=== PATIENT | female | born 2000 | race Caucasian/White ===

== ENCOUNTER 2020-11-08 12:41 | Emergency (ER) | payer OTHER, MEDICAID, SELFPAY ==
[2020-11-08 12:45] VITALS: BP 148/100; PULSE 100; RESP 14; TEMP 37; O2SAT 100; BMI 54.9
--- NOTE | 2020-11-08 12:53 | XR_ITS ---
PROCEDURE: XR KNEE LT 3V CLINICAL INDICATION: fall Pain following injury COMPARISON: No exams were available for comparison FINDINGS: No fracture or dislocation. No lytic or blastic change. There is normal mineralization. The joint spaces are well-preserved. No significant degenerative/arthritic changes. No erosive changes evident. Other findings:None. IMPRESSION: No acute findings. Dictated by: Gaston Rios MD 11/08/2020 15:57 Gaston Rios MD in [place] 11/08/2020 15:57
--- NOTE | 2020-11-08 12:53 | XR_ITS ---
PROCEDURE: XR TIBIA FIBULA LT 2V CLINICAL INDICATION: FALL Posttraumatic pain COMPARISON: No exams were available for comparison FINDINGS: No fracture or dislocation. No lytic or blastic change. There is normal mineralization. The joint spaces are well-preserved. No significant degenerative/arthritic changes. No erosive changes evident. Other findings:None. IMPRESSION: No acute findings. Dictated by: Gaston Rios MD 11/08/2020 15:56 Gaston Rios MD in [place] 11/08/2020 15:56
--- NOTE | 2020-11-08 12:53 | XR_ITS ---
PROCEDURE: XR ANKLE LT MIN 3V CLINICAL INDICATION: fall Posttraumatic pain COMPARISON: No exams were available for comparison FINDINGS: No fracture or dislocation. No lytic or blastic change. There is normal mineralization. The joint spaces are well-preserved. No significant degenerative/arthritic changes. No erosive changes evident. Other findings:None. IMPRESSION: No acute findings. Dictated by: Gaston Rios MD 11/08/2020 15:55 Gaston Rios MD in [place] 11/08/2020 15:55
[2020-11-08 13:01] LABS: UTC Pregnancy Test, Urine Negative (Negative)
--- NOTE | 2020-11-08 13:22 | HMH.EDUTC ---
[facility] [place] Disposition Clinical Impression: Left leg pain Left knee sprain Qualifiers: Encounter type: initial encounter Involved ligament of knee: unspecified ligament Qualified Code(s): S83.92XA - Sprain of unspecified site of left knee, initial encounter Left knee pain Qualifiers: Chronicity: acute Qualified Code(s): M25.562 - Pain in left knee Disposition: Home, Self-Care Condition on Discharge: Good Instructions: DI for Knee Sprain Additional Instructions: Rest the extremity, apply ice for 15 minutes as tolerated three or four times per day, Wear the brittny wrap for compression, Elevate the extremity as tolerated while you are resting. Take ibuprofen for pain. I sent in a prescription to your pharmacy. Follow up with Dr. Bravo (orthopedics). Sometimes there can be fractures that don't show up well on the first set of x-rays. So, you should follow up if you continue to have symptoms. I put in a referral but you need to call his office and schedule an appointment. Follow up with your regular doctor. GO TO THE ER FOR ANY WORSENING SYMPTOMS Prescriptions: Ibuprofen [Ibuprofen 600mg Tablet] 600 mg PO Q6HP PRN #30 tab PRN Reason: Mild Pain Transmission Status: Received by [id number] Referrals: PCP,No [Primary Care Provider] - Jovani Bravo MD [Staff Physician] - Time of Disposition: 13:43 Medical Decision Making - Medical Records Medical records reviewed: No: I reviewed the patient's medical records. - Byron Inquiry Pt receiving controlled substance: No Vital Signs: 11/08/20 12:45 11/08/20 13:44 Temperature 98.6 F 98.6 F Temperature Source Oral Pulse Rate 100 H Pulse Rate [Right Brachial] 100 H Respiratory Rate 14 14 Blood Pressure 148/100 H Blood Pressure [Right Arm] 148/100 H Blood Pressure Mean [Right Arm] 116 Blood Pressure Source [Right Arm] Automatic Cuff Blood Pressure Position [Right Arm] Sitting 02 Sat by Pulse Oximetry 100 Oxygen Delivery Method Room Air - Lab Data Lab Results 11/08/20 12:55: [facility] Negative - Radiology Data #1 Image(s): Knee Image Reviewed: Yes I reviewed the patient's radiology image, Yes I have reviewed radiologist's interpretation Preliminary Findings: Normal/NAD PROCEDURE: XR KNEE LT 3V CLINICAL INDICATION: fall Pain following injury COMPARISON: No exams were available for comparison FINDINGS: No fracture or dislocation. No lytic or blastic change. There is normal mineralization. The joint spaces are well-preserved. No significant degenerative/arthritic changes. No erosive changes evident. Other findings:None. IMPRESSION: No acute findings. Dictated by: Gaston Rios MD 11/08/2020 15:57 Gaston Rios MD in [place] 11/08/2020 15:57 #2 Image(s): Tib/Fib Image Reviewed: Yes I reviewed the patient's radiology image, Yes I have reviewed radiologist's interpretation Preliminary Findings: Normal/NAD PROCEDURE: XR TIBIA FIBULA LT 2V CLINICAL INDICATION: FALL Posttraumatic pain COMPARISON: No exams were available for comparison FINDINGS: No fracture or dislocation. No lytic or blastic change. There is normal mineralization. The joint spaces are well-preserved. No significant degenerative/arthritic changes. No erosive changes evident. Other findings:None. IMPRESSION: No acute findings. Dictated by: Gaston Rios MD 11/08/2020 15:56 Gaston Rios MD in [place] 11/08/2020 15:56 #3 Image(s): Ankle Image Reviewed: Yes I reviewed the patient's radiology image, Yes I have reviewed radiologist's interpretation Preliminary Findings: Normal/NAD PROCEDURE: XR ANKLE LT MIN 3V CLINICAL INDICATION: fall Posttraumatic pain COMPARISON: No exams were available for comparison FINDINGS: No fracture or dislocation. No lytic or blastic change. There is normal mineralization. The joint spaces are well-preserved. No significant degenerative/arthritic changes. N
[2020-11-08 13:44] VITALS: BP 148/100; PULSE 100; RESP 14; TEMP 37; O2SAT 100
== END 2020-11-08 13:50 | disposition home or self-care (01) ==
PROVIDERS: Emergency Provider Nurse Practitioner Family
DX: S83.92XA Sprain of unspecified site of left knee, initial encounter (principal); W10.9XXA Fall (on) (from) unspecified stairs and steps, initial encounter; Y92.019 Unspecified place in single-family (private) house as the place of occurrence of the external cause; F17.210 Nicotine dependence, cigarettes, uncomplicated
CPT/HCPCS: 73562; 73590; 73610; 81025; 99201

== ENCOUNTER → 2020-12-16 12:14 | Outpatient (CLI) | payer OTHER, SELFPAY ==
[2020-12-16 12:59] LABS: Basophils # 0.1 K/mm3 (0-0.2); Basophils % 0.6 % (0.1-2.0); Eosinophils # 0.1 K/mm3 (0.0-0.4); Eosinophils % 0.7 % (0.1-12.0); Hematocrit 42.4 % (37.0-47.0); Hemoglobin 13.6 g/dL (12.2-16.2); Lymphocytes # 3.4 K/mm3 (0.7-4.5); Lymphocytes % 25.5 % (10-50); Mean Corpuscular HGB Conc 32.1 g/dL (31.8-35.4); Mean Corpuscular Hemoglobin 27.2 pg (27.0-31.2); Mean Corpuscular Volume 84.5 fl (81-99); Mean Platelet Volume 8.3 fl (7.4-10.4); Monocytes # 0.6 K/mm3 (0.1-1.0); Monocytes % 4.4 % (1.7-9.3); Neutrophils # 9.1 K/mm3 (1.8-7.8); Neutrophils % 68.7 % (37.0-80.0); Platelet Count 348 K/mm3 (142-424); Red Blood Count 5.02 M/mm3 (4.20-5.40); Red Cell Distribution Width 14.9 % (11.5-17.5); White Blood Count 13.3 K/mm3 (4.8-10.8)
[2020-12-18 08:48] LABS: HIV Screen 4th Generation wRfx Non Reactive (Non Reactive)
[2020-12-18 13:46] LABS: Hepatitis B Surface Antigen Negative (Negative); Hepatitis C Antibody <0.1 s/co ratio (0.0-0.9); Rapid Plasma Reagin Ab Titer Non Reactive (NonRea<1:1); Rubella Antibodies, IgG 2.45 index (Immune >0.99)
== END ==
PROVIDERS: Visit Provider Nurse Practitioner Obstetrics & Gynecology
DX: Z34.90 Encounter for supervision of normal pregnancy, unspecified, unspecified trimester (principal); Z3A.08 8 weeks gestation of pregnancy
CPT/HCPCS: 36415; 85025; 86592; 86703; 86762; 86850; 87340; 87380; G0432

== ENCOUNTER → 2020-12-19 13:47 | Outpatient (CLI) | payer OTHER, SELFPAY ==
--- NOTE | 2020-12-19 13:47 | US_ITS ---
PROCEDURE: US OB <= 14 WEEKS FETUS CLINICAL INDICATION: US OB before 14 weeks for DATES Now status 6 COMPARISON: No exams were available for comparison FINDINGS: An intrauterine gestational sac is present with a pole with a crown-rump length of 1.83cm correlating to gestational age of 8weeks 3days. heart tones are present with an FHR of 167bpm. Yolk sac is noted. There is a 2 cm right ovarian cyst. No cul-de-sac fluid. IMPRESSION: Live IUP at 8 weeks 3 days. Estimated due date by Ultrasound is 07/28/2021 Dictated by: Gaston Rios MD 12/19/2020 17:27 Gaston Rios MD in [place] 12/19/2020 17:27
== END ==
PROVIDERS: Visit Provider Nurse Practitioner Obstetrics & Gynecology
DX: O26.841 Uterine size-date discrepancy, first trimester (principal)
CPT/HCPCS: 76801

== ENCOUNTER → 2021-01-13 11:00 | Outpatient (CLI) | payer OTHER, SELFPAY | PROVIDERS: Visit Provider Nurse Practitioner Obstetrics & Gynecology | DX: Z36.0 Encounter for antenatal screening for chromosomal anomalies (principal) | CPT/HCPCS: 36415 ==

== ENCOUNTER 2021-01-23 00:35 | Emergency (ER) | payer OTHER, SELFPAY ==
[2021-01-23 00:36] VITALS: BP 152/83; PULSE 79; RESP 20; TEMP 36.4; O2SAT 96; BMI 56.7
--- NOTE | 2021-01-23 00:38 | PC.NURSE ---
at bedside and completed pelvic u/s himself.
--- NOTE | 2021-01-23 00:52 | HMH.EDGENADL ---
ED Disposition Clinical Impression: Second trimester bleeding Disposition: Home, Self-Care Condition on Discharge: Good Instructions: DI for Vaginal Bleeding Additional Instructions: Return to the emergency department for worsening bleeding abdominal pain dizziness shortness of air or any other concerns within the next 8 hours otherwise follow-up with your primary care physician and safe and vault mechanic within the next few days - Critical Care Critical Care Time: No Attestation: On , the high probability of a clinically significant, sudden or life threatening deterioration of the following system(s) required my full and direct attention, intervention and personal management. The time I documented below is in addition to time spent performing reported procedures but includes the following listed in this critical care notation. Medical Decision Making - Medical Records Medical records reviewed: Yes: I reviewed the patient's medical records. - Byron Inquiry Pt receiving controlled substance: No Medical Decision Narrative: 20-year-old female early second trimester presents with bleeding, she has no active bleeding at this point and had minimal bleeding and spotting initially. No abdominal pain at this point or cramping. She had Rh+ status previously documented and had normal hematocrit at that time. I doubt severe anemia at this time as she has no dizziness or shortness of air or other symptoms. Bedside ultrasound performed and she has IUP identified at [id number] per biparietal diameter with heart rate visualized and active movement of fetus. Discussed need to follow-up with safe and vault mechanic however no indication for labs at this point. I did give miscarriage precautions and recommendation for follow-up General Adult HPI - General Stated complaint: 14 weeks and bleeding Time Seen by Provider: 01/23/21 00:50 - History of Present Illness HPI narrative: 20-year-old female G1, presents with vaginal spotting x1 tonight. She says she is 14 weeks and she is followed by OB here. She has no abdominal pain nausea vomiting discharge dysuria diarrhea. No prior episodes of spotting. She was Rh+ and labs previously otherwise unremarkable. Onset (ago): hour(s) (1) Radiation: non-radiation Severity: mild - Related Data Home Medications Medication Instructions Recorded Confirmed prenat.vits,priscilla,[id number] 1 tab PO DAILY 12/16/20 01/13/21 Allergies Allergy/AdvReac Type Severity Reaction Status Date / Time bee venom protein (honey bee) Allergy Unknown Swelling Verified 01/13/21 10:12 peanut Allergy Unknown Hives Verified 01/13/21 10:12 [facility] History - Hepatitis A Screen Attestation statement:: This patient has been screened for Hepatitis A risk factors. Laterality Cases: Bilateral: Tonsillectomy Amputation: No Fractures: No - Social History Smoking Status: Current every day smoker Tobacco Type: cigarettes # Packs/Day (cigarettes): 1 Alcohol Intake: never Substance Use Type: denies use Occupational Status: other Family Hx:: No significant family history ROS Obtained: Yes All systems reviewed & no additional complaints - Constitutional Constitutional: Denies body ache, Denies chills - Eyes Eyes: Denies blurry vision - Cardiovascular Cardiovascular: Denies chest pain - Respiratory Respiratory: Denies dyspnea - Gastrointestinal Gastrointestingal: Denies: abdominal pain - Genitourinary Female Genitourinary: Denies dysuria, Denies vaginal discharge - Musculoskeletal Musculoskeletal: Denies back pain - Integumentary/Breasts Skin/Breast: Denies breast pain - Neurologic Neurologic: Denies numbness, Denies tingling, Denies weakness - Hematologic/Lymphatic Henatologic/Lymphatic: Denies easy bleeding Physical Exam - General General appearance: alert, in no apparent distress - Head Head exam: atraumatic - Eye Eye exam: Present: PERRL - ENT E
[2021-01-23 01:05] VITALS: BP 118/81; PULSE 80; RESP 18; TEMP 36.6
[2021-01-23 01:06] VITALS: BP 119/83; PULSE 79; TEMP 36.6; O2SAT 97
== END 2021-01-23 01:06 | disposition home or self-care (01) ==
PROVIDERS: Emergency Provider Emergency Medicine
DX: O26.852 Spotting complicating pregnancy, second trimester (principal); Z3A.14 14 weeks gestation of pregnancy; F17.210 Nicotine dependence, cigarettes, uncomplicated
CPT/HCPCS: 99282

== ENCOUNTER → 2021-03-16 12:47 | Outpatient (CLI) | payer OTHER, SELFPAY ==
--- NOTE | 2021-03-16 12:48 | US_ITS ---
PROCEDURE: US OB /MATERNAL DETAIL CLINICAL INDICATION: 20 weeks gestation COMPARISON: US US OB <= 14 WEEKS FETUS from 12/19/2020 FINDINGS: Single live IUP which was in cephalic presentation initially but turn to breech position at the into the exam. Presentation. Cervix is closed measuring 4 cm. Placenta is anterior and grade 1 without previa or abruption. Average appearing amniotic fluid Complete survey performed and was unremarkable on the submitted images as in PACS. No discrete anomalies identified on survey imaging by technologist. Active fetus. Three-vessel cord with satisfactory umbilical cord insertion. 4- chamber heart noted. Survey of brain & ventricles Unremarkable. Face and neck survey unremarkable. Diaphragm and chest views unremarkable. Abdomen: Both kidneys noted and unremarkable. Stomach noted and satisfactory. Spine: Survey of the spine satisfactory with no anomalies identified nor imaged. Both arms and legs noted. Amniotic Fluid: Adequate. Maternal adnexa: No significant findings. Measurements: Average ultrasound age 20weeks 5days. Gestational Age 20weeks 5days Estimated due date by ultrasound age 0907/29/2021. Estimated weight 364g BPD = 20weeks 6days OFD = 20weeks 5days HC = 20weeks AC = 20weeks 4days FL = 21weeks Growth Percentile= 32Percent% Heart Rate = 147bpm Cerebellum = 20weeks 5days Humerus = 21weeks HC/AC is 1.14 CI is 0.79 FL/BPD is 0.71 FL/AC is 0.23 IMPRESSION: Live IUP at 20 weeks 5 days as described above. No obvious anomalies. Please see above for detail Dictated by: Gaston Rios MD 03/17/2021 06:43 Gaston Rios MD in [place] 03/17/2021 06:43
== END ==
PROVIDERS: PCP Nurse Practitioner Family; Visit Provider Nurse Practitioner Obstetrics & Gynecology
DX: Z34.90 Encounter for supervision of normal pregnancy, unspecified, unspecified trimester (principal); Z3A.20 20 weeks gestation of pregnancy
CPT/HCPCS: 76811

== ENCOUNTER → 2021-03-24 09:15 | Outpatient (CLI) | payer OTHER, SELFPAY ==
--- NOTE | 2021-03-24 09:17 | CA_ITS ---
APPROVED REPORT EXAM: Comprehensive 2D, Doppler, and color-flow Echocardiogram Xm1 Tank Driver: Mena Alcaraz, RCS, RVS Ht: 5 ft 9 in Wt: 377lbs BSA: 2.70 HR: 80 bpm BP: 159/96 mmHg Rhythm: NSR Indications: SOA, HTN,smoker, Edema, morbid obesity, 20weeks 2D Dimensions IVSd 0.67 cm LVEF (Visual) 71.00 % PWd 0.88 cm LVDd 5.50 cm LVDs 3.26 cm LVOT 2.05 cm (M/F) 1.5-2.5 M-Mode Dimensions LA Diam 3.76 cm (1.9-4.0) LVDd 5.38 cm (3.5-5.7) Ao Diam 3.05 cm (2.0-3.7) LVDs 3.60 cm (3.5-5.7) EF (Teich) 61.20% EPSs 0.57 cm FS 33.10% EDV (Teich) 140.10 mL TAPSE 3.07 (<1.7) ESV (Teich) 54.40 mL LV Diastology E Decel Time 253.00 (160-240 msec) E/A Ratio 1.20 MED E' 10.00 (< 7 cm/sec) MED A' 13.40 cm/s E'/MED E' Ratio 8.54 (>14) LAT E' 12.50 (<10 cm/sec) LAT A' 7.00 cm/s E/LAT E' Ratio 6.83 (>14) Aortic Valve LVOT Max 106.00 (70-110 cm/s) LVOT VTI 23.78 cm AoV Peak Doron. 146.00 (50-130 cm/s) AI PHT 351.00 ms AO Peak GR. 8.50 mmHg AO Mean GR. 4.60 (<5 mmHg) AO VTI 29.36 (18-25 cm) TESSA (VTI) 2.67 (2.5-4.5 cm2) Mitral Valve MV A Velocity 71.00 (40-130 cm/s) E/A Ratio 1.20 MV Decel. Time 253.00 (160-240 ms) Pulmonary Valve PV Peak Velocity 92.00 (50-150 cm/s) WI End VMAX 122.00 cm/s Tricuspid Valve TR P. Velocity 213.00 cm/s RAP Estimate 10.00 mmHg RVSP 28.10 mmHg Left Ventricle Left atrium normal size, left ventricle is normal size, there is no concentric left ventricular hypertrophy, visually estimated ejection fraction 55% with no regional wall motion abnormality, diastolic parameters are within normal range. Right Ventricle Right atrium and right ventricle are normal size and contractility. Aortic Valve Aortic valve is grossly normal, there is no aortic stenosis or aortic insufficiency. Mitral Valve Mitral valve grossly normal, there is trace mitral regurgitation. Tricuspid Valve Tricuspid grossly normal, there is trace tricuspid regurgitation, tricuspid regurgitation jet velocity is inadequate for calculation of the right ventricular systolic pressure. Pulmonic Valve Pulmonic valve is poorly visualized. Great Vessels Aortic root is normal size. Pericardium No significant pericardial effusion noted. Conclusion 1. Normal left ventricular size, preserved left ventricular systolic function, visually estimated ejection fraction 55% with no regional wall motion abnormality, diastolic parameters are within normal range. 2. Trace mitral and tricuspid regurgitation. 3. No significant pericardial effusion noted. Electronically signed by : Gabo Neely, 03/24/2021 18:55:48
== END ==
PROVIDERS: PCP Nurse Practitioner Family; Visit Provider Internal Medicine Cardiovascular Disease
DX: R07.9 Chest pain, unspecified (principal); R06.00 Dyspnea, unspecified; R00.2 Palpitations; I10 Essential (primary) hypertension; R60.0 Localized edema; Z72.0 Tobacco use; O26.892 Other specified pregnancy related conditions, second trimester
CPT/HCPCS: 93306

== ENCOUNTER 2021-04-25 19:45 | Emergency (ER) | payer OTHER, SELFPAY ==
[2021-04-25 19:46] VITALS: BP 128/90; PULSE 99; RESP 20; TEMP 37.1; O2SAT 100; BMI 40.1
[2021-04-25 20:13] VITALS: BP 128/90; PULSE 99; RESP 20; TEMP 37.1; O2SAT 100
== END 2021-04-25 20:19 | disposition left against medical advice (07) ==
LOC: ER 20:00 → UTC 20:00
PROVIDERS: Emergency Provider Nurse Practitioner Family; PCP Nurse Practitioner Family
DX: Z53.21 Procedure and treatment not carried out due to patient leaving prior to being seen by health care provider (principal); S80.862A Insect bite (nonvenomous), left lower leg, initial encounter; S80.861A Insect bite (nonvenomous), right lower leg, initial encounter
CPT/HCPCS: 99211

== ENCOUNTER → 2021-05-01 09:22 | Outpatient (CLI) | payer OTHER, SELFPAY ==
[2021-05-01 09:55] LABS: Glucose,Fasting 97 mg/dl (74-100)
[2021-05-01 11:23] LABS: Glucose 1 Hour 110 mg/dL (74-100)
== END ==
PROVIDERS: Visit Provider Nurse Practitioner Obstetrics & Gynecology
DX: Z34.90 Encounter for supervision of normal pregnancy, unspecified, unspecified trimester (principal); Z3A.24 24 weeks gestation of pregnancy
CPT/HCPCS: 36415; 82951

== ENCOUNTER → 2021-05-22 10:29 | Outpatient (CLI) | payer OTHER, SELFPAY ==
--- NOTE | 2021-05-22 10:29 | US_ITS ---
PROCEDURE: US OB BIOPHYSICAL PROFILE CLINICAL INDICATION: Decreased Movement TECHNIQUE: FINDINGS: The following parameters are obtained: Average ultrasound age is Average 30weeks 3days Estimated due date by ultrasound is 07/28/2021. Estimated weight is 1,559g. This is 23rd percentile BPD: 30weeks 2days OFD: 30weeks 2days HC: 30 weeks 2 days AC: 30 weeks 4 days FL: 30 weeks 3 days heart rate: 136bpm bpm. HC/AC: 1.05 Cephalic index: 0.77 FL/BPD: 0.76 FL/AC: 0.22 Amniotic fluid index: 9.65cm Qualitative AFV: 2 breathing movements: 2 Gross body movements: 2 Tone: 2 Biophysical profile score: 8 No obvious anomalies evident. Placenta: Anterior and grade 2 Cervix: Closed measuring 3 cm IMPRESSION: Live IUP which is in cephalic presentation with an average ultrasound age of 30 weeks 3 days and an estimated weight 1559 g which is 23rd percentile. All parameters correlate. Normal JUAN MANUEL 10 cm Biophysical profile 8 of 8 Dictated by: Gaston Rios MD 05/22/2021 13:55 Gaston Rios MD in [place] 05/22/2021 13:55
== END ==
PROVIDERS: PCP Nurse Practitioner Family; Visit Provider Nurse Practitioner Obstetrics & Gynecology
DX: O36.8130 Decreased fetal movements, third trimester, not applicable or unspecified (principal)
CPT/HCPCS: 76816; 76819

== ENCOUNTER 2021-06-20 03:34 | Observation (INO) | payer OTHER, SELFPAY ==
[2021-06-20 01:14] VITALS: BMI 55.8
--- NOTE | 2021-06-20 01:16 | ECG_ITS ---
APPROVED REPORT Exam: Resting ECG HR:96 bpm ECG Measurements Heart Rate 96 AXES DE 130 P 45 QRSd 90 QRS 53 QT 358 T 17 QTc 452 Conclusion Normal sinus rhythm Normal ECG Electronically signed by : Celestine Claudio, 06/21/2021 20:58:13
[2021-06-20 01:20] VITALS: BP 142/92; PULSE 112; RESP 22; TEMP 37; O2SAT 98; BMI 55.8
[2021-06-20 01:22] LABS: Microscopic, Urine URINE MICROSCOPIC (MICROSCOPIC)
[2021-06-20 01:23] LABS: Appearance,Urine CLOUDY (Clear); Blood, Urine 3+ (Negative); Color,Urine YELLOW (Yellow); Glucose,Urine (UA) Negative (Negative); Ketones,Urine TRACE (Negative); Leukocyte Esterase,Urine TRACE (Negative); Nitrate,Urine Negative (Negative); Protein,Urine TRACE (Negative); Specific Gravity, Urine >= 1.030 (1.005-1.030)
[2021-06-20 01:26] LABS: Bilirubin,Urine Negative (Negative)
[2021-06-20 01:27] LABS: Amorphous Sediment,Urine 1+ /lpf; Squamous Epithelial Cell,Urine TNTC #/hpf (0-5)
[2021-06-20 01:36] LABS: Barbiturates Screen,Urine Negative ng/ml (<200)
[2021-06-20 01:37] LABS: Benzodiazepines Screen,Urine Negative ng/ml (<200)
[2021-06-20 01:38] LABS: Amphetamine/Metha Screen,Urine Negative ng/ml (<1000); Cannabinoid Screen,Urine Negative ng/ml (<50)
[2021-06-20 01:39] LABS: Cocaine Screen,Urine Negative ng/ml (<300); Methadone Screen,Urine Negative ng/ml (<300)
[2021-06-20 01:40] LABS: Opiate Screen,Urine Negative ng/ml (<300)
[2021-06-20 01:41] LABS: Phencyclidine Screen,Urine Negative ng/ml (<25)
[2021-06-20 02:03] LABS: Basophils # 0.1 K/mm3 (0-0.2); Basophils % 0.3 % (0.1-2.0); Eosinophils # 0.3 K/mm3 (0.0-0.4); Eosinophils % 1.3 % (0.1-12.0); Hematocrit 34.4 % (37.0-47.0); Hemoglobin 11.2 g/dL (12.2-16.2); Lymphocytes # 3.5 K/mm3 (0.7-4.5); Lymphocytes % 16.7 % (10-50); Mean Corpuscular HGB Conc 32.4 g/dL (31.8-35.4); Mean Corpuscular Hemoglobin 26.5 pg (27.0-31.2); Mean Corpuscular Volume 81.7 fl (81-99); Mean Platelet Volume 8.7 fl (7.4-10.4); Monocytes # 1.2 K/mm3 (0.1-1.0); Monocytes % 5.9 % (1.7-9.3); Neutrophils # 15.8 K/mm3 (1.8-7.8); Neutrophils % 75.8 % (37.0-80.0); Platelet Count 340 K/mm3 (142-424); Red Blood Count 4.21 M/mm3 (4.20-5.40); Red Cell Distribution Width 14.2 % (11.5-17.5)
[2021-06-20 02:07] LABS: White Blood Count 20.9 K/mm3 (4.8-10.8)
[2021-06-20 02:08] LABS: MANUAL DIFFERENTIAL MANUAL DIFFERENTIAL (MANUAL DIFF)
[2021-06-20 02:12] LABS: Lymphocytes % 7 % (10-50); Monocytes % 1 % (2-9); Neutrophils % 89 % (42-76); Total Cells Counted 100
[2021-06-20 02:13] LABS: Platelet Estimate Normal; RBC Morphology Normal
[2021-06-20 02:15] LABS: Activated Partial Thrombo Time 23.8 seconds (22.8-30.6); Fibrinogen 615 mg/dL (229.9-363.5); INR 0.85 (0.9-1.1); Prothrombin Time 10.2 seconds (10.1-12.5)
[2021-06-20 02:28] LABS: Sodium 138 mmol/L (136-145); Troponin I < 0.01 ng/ml (0.00-0.034)
[2021-06-20 02:29] LABS: Alanine Aminotransferase 11 U/L (12-78); Anion Gap 10.7 mEq/L (5-15); Aspartate Amino Transferase 16 U/L (14-36); Blood Urea Nitrogen 9 mg/dl (7-17); Calcium 8.8 mg/dl (8.4-10.2); Carbon Dioxide 22 mmol/L (22.0-30.0); Chloride 109 mmol/L (98-107); Creatinine Clearance Estimated 154 mL/min (50-200); Estimated Glomerular Filt Rate 125 ml/min (>60); GFR (African American) 151 ML/MIN (>60); Glucose 108 mg/dl (74-100); Potassium 3.7 mmoL/L (3.5-5.1)
[2021-06-20 02:30] VITALS: BP 126/82
[2021-06-20 02:30] LABS: Uric Acid 4.6 mg/dl (2.5-6.2)
[2021-06-20 03:00] LABS: Coronavirus 19, PCR Not Detected (NotDetected); Influenza A, PCR Not Detected (NotDetected); Influenza B, PCR Not Detected (NotDetected)
[2021-06-20 03:00] LABS: D-Dimer 1.02 ug/mL (0.0-0.5)
[2021-06-20 03:30] VITALS: BP 130/87
[2021-06-20 04:25] VITALS: BP 115/59
[2021-06-20 09:00] VITALS: BP 141/78; PULSE 90; RESP 18; TEMP 36.7; O2SAT 99
--- NOTE | 2021-06-20 09:33 | HMH.HPDC ---
General - General Admission date:: 06/20/21 Discharge date: 06/20/21 *Admission Date: 06/20/21 *Chief complaint: Chest pain, shortness of breath, , morbid obesity *History of present illness: She is a 21-year-old 1 now para 0 at 35 weeks gestational age. She complains of chest pain on the left part of her chest that started last night. She came into labor and delivery as result of this chest pain. [facility] History I have reviewed the patient's past medical history: Yes Medical History: Reports:: Hypertension Denies:: Cancer, Diabetes Mellitus Type 1, Diabetes Mellitus Type 2 *Have you ever received a pneumonia vaccine?: No *Have you received a flu vaccine this season?: Yes Laterality Cases: Bilateral: Tonsillectomy Other Surgeries: Yes: No Previous Surgery. No: Amputation: No Fractures: No - *Social History Smoking Status: Current every day smoker Tobacco Type: cigarettes # Packs/Day (cigarettes): 1 Alcohol Intake: former Alcohol Intake Frequency:: other Substance Use Type: denies use *Occupational Status:: unemployed *Travel in the last 8 weeks: None Family Hx:: Diabetes, Cancer Para: 0 Review of Systems - Review of Systems Review of systems:: pertinent systems reviewed and negative unless documented below Exam Vital signs and Labs for Last 24 Hours: Temp Pulse Resp BP Pulse Ox 98.6 F 112 H 22 115/59 L 98 06/20/21 01:20 06/20/21 01:20 06/20/21 01:20 06/20/21 04:25 06/20/21 01:20 Laboratory Results - last 24 hr 06/20/21 00:16: Urine Color Yellow, Urine Appearance Cloudy, Urine pH 6.0, Ur Specific [place] >= 1.030, Urine Protein Trace, Urine Glucose (UA) Negative, Urine Ketones Trace, Urine Blood 3+, Urine Nitrate Negative, Urine Bilirubin Negative, Urine Urobilinogen 1.0, Ur Leukocyte Esterase Trace, Urine RBC 10-20, Urine WBC 3-5, Ur Squamous Epith Cells Tntc, Amorphous Sediment 1+ 06/20/21 00:16: Urine Opiates Screen Negative, Urine Methadone Screen Negative, Ur Barbituates Screen Negative, Ur Phencyclidine Scrn Negative, Ur Amphetamines Screen Negative, U Benzodiazepines Scrn Negative, Urine Cocaine Screen Negative, U Marijuana (THC) Screen Negative 06/20/21 01:50: WBC 20.9 H*, RBC 4.21, Hgb 11.2 L, Hct 34.4 L, MCV 81.7, MCH 26.5 L, MCHC 32.4, RDW 14.2, Plt Count 340, MPV 8.7, Neut % (Auto) 75.8, Lymph % (Auto) 16.7, Schleicher % (Auto) 5.9, Eos % (Auto) 1.3, Baso % (Auto) 0.3, Neut # (Auto) 15.8 H, Lymph # (Auto) 3.5, Schleicher # (Auto) 1.2 H, Eos # (Auto) 0.3, Baso # (Auto) 0.1, Total Counted 100, Neutrophils % (Manual) 89 H, Band Neutrophils % 3.0, Lymphocytes % (Manual) 7 L, Monocytes % (Manual) 1 L, Platelet Estimate Normal, RBC Morphology Normal 06/20/21 01:50: PT 10.2, INR 0.85 L, APTT 23.8, Fibrinogen 615 H 06/20/21 01:50: D-Dimer 1.02 H, Sodium 138, Potassium 3.7, Chloride 109 H, Carbon Dioxide 22, Anion Gap 10.7, BUN 9, Creatinine 0.60, Estimated Creat Clear 154, Estimated GFR 125, Est GFR ( Amer) 151, Glucose 108 H, Uric Acid 4.6, Calcium 8.8, AST 16, ALT 11 L, Troponin I < 0.01 06/20/21 02:55: SARS-CoV-2 (PCR) Not detected, Influenza A Untype (PCR) Not detected, Influenza Type B (PCR) Not detected 06/20/21 07:25: NT-Pro-B Natriuret Pep 19.0 I & O for Last 24 hours: Intake & Output 06/17/21 06/18/21 06/19/21 06/20/21 11:59 11:59 11:59 11:59 Weight 378 lb 6.4 oz - Constitutional no acute distress - *Routine HEENT Exam Head: Present: normocephalic Eye: Present: EOMI, PERRL ENT: Present: mucous membranes moist - *Routine Neck Exam Present: supple, full ROM - *Routine Respiratory Exam Absent: accessory muscle use (good air entry bilaterally), wheezes, crackles - *Routine Cardiovascular Exam Present: RRR. Absent: murmur - *Routine Abdominal Exam Present: soft, normoactive bowel sounds. Absent: tenderness, rebound, guarding, mass - *Routine Rectal Exam Rectal:: deferred - *Routine Genitalia Exam Genitalia:: deferred - *Routine Extremities E
== END 2021-06-20 10:25 | disposition home or self-care (01) ==
LOC: OBOUT 03:36 → OB 03:36
PROVIDERS: Admitting Provider Nurse Practitioner Obstetrics & Gynecology; PCP Nurse Practitioner Family; Visit Provider Nurse Practitioner Obstetrics & Gynecology
DX: O26.893 Other specified pregnancy related conditions, third trimester (principal); Z3A.35 35 weeks gestation of pregnancy; R07.9 Chest pain, unspecified; O16.4 Unspecified maternal hypertension, complicating childbirth; O99.333 Smoking (tobacco) complicating pregnancy, third trimester; Z20.822 Contact with and (suspected) exposure to COVID-19
CPT/HCPCS: 59025; 80048; 80305; 81001; 83880; 84450; 84460; 84484; 84550; 85007; 85025; 85378; 85384; 85610; 85730; 93005; 94761; G0283; G0378; G0463; U0003

== ENCOUNTER → 2021-06-29 17:41 | Outpatient (CLI) | payer OTHER, SELFPAY | PROVIDERS: Visit Provider Nurse Practitioner Obstetrics & Gynecology | DX: Z34.90 Encounter for supervision of normal pregnancy, unspecified, unspecified trimester (principal) | CPT/HCPCS: 86403 ==

== ENCOUNTER → 2021-07-03 10:15 | Outpatient (CLI) | payer OTHER, SELFPAY ==
--- NOTE | 2021-07-03 10:15 | US_ITS ---
PROCEDURE: US OB /MATERNAL DETAIL CLINICAL INDICATION: lga Large for gestational age COMPARISON: US US OB BIOPHYSICAL PROFILE from 05/22/2021 FINDINGS: There is a single live fetus present which is in cephalic presentation. heart body motion noted. Cervix is closed. The placenta is anterior and grade 3. Average ultrasound age is 37 weeks 1 day. All parameters correlate. Estimated weight is 3053 g which is 56 percentile. JUAN MANUEL normal at 15 cm. Biophysical profile 06/28 Measurements: Average ultrasound age 37weeks 1day. Gestational Age 37weeks 1day Estimated due date by ultrasound age 0907/23/2021. Estimated weight 3,053g BPD = 37weeks 1day OFD = 37weeks 1day HC = 36weeks 3days AC = 36weeks 3days FL = 38weeks 1day Growth Percentile= 56% Heart Rate = 155bpm Cerebellum = Humerus = HC/AC is 0.99 CI is 0.81 FL/BPD is 0.82 FL/AC is 0.23 IMPRESSION: There is a single live fetus present which is in cephalic presentation. heart body motion noted. Cervix is closed. The placenta is anterior and grade 3. Average ultrasound age is 37 weeks 1 day. All parameters correlate. Estimated weight is 3053 g which is 56 percentile. JUAN MANUEL normal at 15 cm. Biophysical profile 06/28 Dictated by: Gaston Rios MD 07/03/2021 12:48 Gaston Rios MD in [facility] 07/03/2021 12:48
== END ==
PROVIDERS: PCP Nurse Practitioner Family; Visit Provider Nurse Practitioner Obstetrics & Gynecology
DX: O36.60X0 Maternal care for excessive fetal growth, unspecified trimester, not applicable or unspecified (principal)
CPT/HCPCS: 76811; 76819

== ENCOUNTER 2021-07-20 16:01 | Inpatient (IN) | payer OTHER, SELFPAY ==
[2021-07-20 16:16] VITALS: BMI 57.6
--- NOTE | 2021-07-20 16:45 | HMH.OBAPHP ---
OB - H&P: HPI Antepartum - History of Present Illness Chief complaint: Increased blood pressure Comments: She was seen in the office today and her blood pressure is increased. We will go ahead and admit her and plan for delivery. - History of Present Criteria for establishing EDC:: LMP confirmed by 1st trimester US care: good care Ultrasounds: normal 1st trimester US, normal mid trimester US Obstetrical complications: preeclampsia Medical complications: none - Labs Blood type: O (+) positive Rubella: immune RPR/VDRL: nonreactive GBS status: negative HBsAG: negative [facility] History I have reviewed the patient's past medical history: Yes Medical History: Reports:: Hypertension Denies:: Cancer, Diabetes Mellitus Type 1, Diabetes Mellitus Type 2 *Have you ever received a pneumonia vaccine?: No *Have you received a flu vaccine this season?: No Laterality Cases: Bilateral: Tonsillectomy Other Surgeries: Yes: No Previous Surgery. No: Amputation: No Fractures: No - *Social History Smoking Status: Current every day smoker Tobacco Type: cigarettes # Packs/Day (cigarettes): 1 Alcohol Intake: former Alcohol Intake Frequency:: other Substance Use Type: denies use *Occupational Status:: unemployed *Travel in the last 8 weeks: None Family Hx:: Diabetes, Cancer Review of Systems - Review of Systems Review of systems:: pertinent systems reviewed and negative unless documented below Meds Home Medications Medication Instructions Recorded Confirmed Type prenat.vits,priscilla,[id number] 1 tab PO DAILY 12/16/20 07/20/21 History Aspirin [Adult Low Dose Aspirin EC] 81 mg PO DAILY 06/20/21 07/20/21 History Ferrous Sulfate 325 mg PO DAILY 06/20/21 07/20/21 History Allergies Allergy/AdvReac Type Severity Reaction Status Date / Time bee venom protein (honey bee) Allergy Unknown Swelling Verified 07/20/21 14:55 peanut Allergy Unknown Hives Verified 07/20/21 14:55 OB - H&P: Exam - Constitutional no acute distress, morbidly obese - Routine HEENT Exam Head: Present: normocephalic Eye: Present: EOMI, PERRL ENT: Present: mucous membranes moist - Routine Neck Exam Present: supple, full ROM - Routine Respiratory Exam Absent: accessory muscle use (good air entry bilaterally), respiratory distress, wheezes, crackles - Routine Cardiovascular Exam Present: RRR. Absent: murmur - Routine Abdominal Exam Present: soft, normoactive bowel sounds. Absent: tenderness, distended, guarding - Routine Rectal Exam Patient deferred: visual exam, digital exam - Routine Exam Patient deferred: external exam, groin exam, perineal exam - Routine Extremities Exam Present: full ROM. Absent: cyanosis, edema - Routine Skin Exam Present: intact. Absent: cyanosis - Routine Neurological Exam Present: alert, oriented X3 - Routine Psychiatric Exam Present: normal affect OB - A/P Antepartum (1) induced hypertension, antepartum Status: Acute (2) Morbid obesity with BMI of 50.0-59.9, adult Status: Acute - Additional Plan Planning to breastfeed?: No Plan: induction Additional Information:: She has increased blood pressure and we will go ahead and admit her. We will put Cervidil in tonight. She is 2 cm 50% and station -2.
[2021-07-20 16:56] LABS: Coronavirus 19, PCR Not Detected (NotDetected); Influenza A, PCR Not Detected (NotDetected); Influenza B, PCR Not Detected (NotDetected)
[2021-07-20 18:06] LABS: Basophils % 0.2 % (0.1-2.0); Eosinophils # 0.1 K/mm3 (0.0-0.4); Eosinophils % 0.6 % (0.1-12.0); Hematocrit 38.1 % (37.0-47.0); Hemoglobin 12.1 g/dL (12.2-16.2); Lymphocytes # 2.6 K/mm3 (0.7-4.5); Lymphocytes % 15.8 % (10-50); Mean Corpuscular HGB Conc 31.9 g/dL (31.8-35.4); Mean Corpuscular Hemoglobin 27.4 pg (27.0-31.2); Mean Corpuscular Volume 85.9 fl (81-99); Mean Platelet Volume 9.5 fl (7.4-10.4); Monocytes # 0.9 K/mm3 (0.1-1.0); Monocytes % 5.4 % (1.7-9.3); Neutrophils # 12.8 K/mm3 (1.8-7.8); Platelet Count 359 K/mm3 (142-424); Red Blood Count 4.43 M/mm3 (4.20-5.40); Red Cell Distribution Width 14.7 % (11.5-17.5); White Blood Count 16.4 K/mm3 (4.8-10.8)
[2021-07-20 18:15] LABS: MANUAL DIFFERENTIAL MANUAL DIFFERENTIAL (MANUAL DIFF)
[2021-07-20 19:20] VITALS: BP 135/84; PULSE 100; RESP 18; TEMP 37.1; O2SAT 100; BMI 57.6
[2021-07-20 19:24] LABS: Lymphocytes % 19 % (10-50); Monocytes % 6 % (2-9); Neutrophils % 75 % (42-76); Platelet Estimate Normal; RBC Morphology Normal; Total Cells Counted 100
[2021-07-20 19:56] VITALS: BP 122/86; PULSE 100; RESP 18; TEMP 36.9; O2SAT 99
[2021-07-20 21:18] LABS: Microscopic, Urine URINE MICROSCOPIC (MICROSCOPIC)
[2021-07-20 21:19] LABS: Appearance,Urine SL CLOUDY (Clear); Bilirubin,Urine Negative (Negative); Blood, Urine TRACE-I (Negative); Color,Urine DK YELLOW (Yellow); Glucose,Urine (UA) Negative (Negative); Ketones,Urine TRACE (Negative); Leukocyte Esterase,Urine Negative (Negative); Nitrate,Urine Negative (Negative); Protein,Urine Negative (Negative); Specific Gravity, Urine >= 1.030 (1.005-1.030); Urobilinogen,Urine 0.2 EU/dl (0.2)
[2021-07-20 21:39] LABS: WBC,Urine Occasional #/hpf (0-3)
[2021-07-20 21:40] LABS: Bacteria,Urine Trace /lpf
[2021-07-20 22:00] LABS: Amphetamine/Metha Screen,Urine Negative ng/ml (<1000); Barbiturates Screen,Urine Negative ng/ml (<200)
[2021-07-20 22:01] LABS: Benzodiazepines Screen,Urine Negative ng/ml (<200); Cannabinoid Screen,Urine Negative ng/ml (<50)
[2021-07-20 22:02] LABS: Cocaine Screen,Urine Negative ng/ml (<300)
[2021-07-20 22:03] LABS: Methadone Screen,Urine Negative ng/ml (<300)
[2021-07-20 22:04] LABS: Phencyclidine Screen,Urine Negative ng/ml (<25)
[2021-07-20 22:07] LABS: Opiate Screen,Urine Negative ng/ml (<300)
[2021-07-20 23:56] VITALS: BP 110/64; PULSE 80; RESP 17; TEMP 36.8; O2SAT 99
--- NOTE | 2021-07-21 07:26 | HMH.ANESCL ---
[facility] Anesthesia Checklist - Patient Identification Patient Identification: Arm Band - Structural Data Admitted From: Home Planned Operative Procedure/s: labor epidural Consent for Planned Operative Procedure(s) Verified: Yes Verified Documents: Surgical Consent, History and Physical - NPO Status Verified Time NPO: 00:00 - Additional verifications Anesthesia Reactions: No - Airway Assessment C-Spine Mobility Assessed: Yes TMJ Mobility Assessed: Yes Dentition: Good Dentition - Neurological Assessment Level of Consciousness: Awake, Alert - Anesthesia Plan Anesthesia Risk discussed: Yes Anesthesia Plan: Verified ASA Class: III Anesthesia Type: Epidural [facility] History I have reviewed the patient's past medical history: Yes Medical History: Reports:: Hypertension Denies:: Cancer, Diabetes Mellitus Type 1, Diabetes Mellitus Type 2 *Have you ever received a pneumonia vaccine?: No *Have you received a flu vaccine this season?: No Anesthesia experience/problems:: nac Laterality Cases: Bilateral: Tonsillectomy Other Surgeries: Yes: No Previous Surgery. No: Amputation: No Fractures: No - *Social History Smoking Status: Current every day smoker Tobacco Type: cigarettes # Packs/Day (cigarettes): 1 Alcohol Intake: former Alcohol Intake Frequency:: other Substance Use Type: denies use *Occupational Status:: employed *Travel in the last 8 weeks: None Family Hx:: Diabetes, Cancer Para: 0
--- NOTE | 2021-07-21 08:17 | HMH.LABNOT ---
Labor Note - Subjective: Date: 07/21/21 Time: 08:17 regular contraction - Objective: NST:: Reactive Cervical Dilation:: 4 Effacement:: 90% Station: -1 Membranes: artificially ruptured - Fetus: Monitoring?: Yes monitoring type:: Internal Comment:: I inserted a clip and an IUPC. - Assessment: Patient Problems: All Active Problems Second trimester bleeding (Acute) Bug bite (Acute) Chest pain (Acute) Shortness of breath (Acute) Morbid obesity with BMI of 50.0-59.9, adult (Acute) related conditions, unspecified, third trimester (Acute) induced hypertension, antepartum (Acute) Sinus tachycardia (Acute) (Acute) - Plan: Anesthesia for epidural?: Yes Continue to labor down?: Yes Plan for ?: No Continue to monitor?: Yes Start pushing?: No Comment:: She had Cervidil overnight and now has been started on oxytocin. She has progressed to 4 cm. The pelvis seems adequate.
--- NOTE | 2021-07-21 10:46 | HMH.LABNOT ---
Labor Note - Subjective: Date: 07/21/21 Time: 10:46 regular contraction - Objective: NST:: Reactive Contractions:: every 2-3 minutes Cervical Dilation:: 5 Effacement:: 100% Station: -1 Membranes: artificially ruptured - Fetus: Monitoring?: Yes monitoring type:: Internal - Assessment: Labor progressing?: Yes Cephalopelvic disproportion?: No Patient Problems: All Active Problems Second trimester bleeding (Acute) Bug bite (Acute) Chest pain (Acute) Shortness of breath (Acute) Morbid obesity with BMI of 50.0-59.9, adult (Acute) related conditions, unspecified, third trimester (Acute) induced hypertension, antepartum (Acute) Sinus tachycardia (Acute) (Acute) - Plan: Anesthesia for epidural?: Yes Continue to labor down?: Yes Plan for ?: No Continue to monitor?: Yes Start pushing?: No
--- NOTE | 2021-07-21 14:03 | HMH.LABNOT ---
Labor Note - Subjective: Date: 07/21/21 Time: 14:03 regular contraction - Objective: NST:: Reactive Contractions:: every 2-3 minutes Cervical Dilation:: 9-10 Effacement:: 100% Station: +1 Membranes: artificially ruptured - Fetus: Monitoring?: Yes monitoring type:: Internal - Assessment: Labor progressing?: Yes Cephalopelvic disproportion?: No Patient Problems: All Active Problems Second trimester bleeding (Acute) Bug bite (Acute) Chest pain (Acute) Shortness of breath (Acute) Morbid obesity with BMI of 50.0-59.9, adult (Acute) related conditions, unspecified, third trimester (Acute) induced hypertension, antepartum (Acute) Sinus tachycardia (Acute) (Acute) - Plan: Anesthesia for epidural?: Yes Continue to labor down?: Yes Plan for ?: No Continue to monitor?: Yes Start pushing?: Yes
[2021-07-21 15:00] LABS: Cord Blood PH 7.35 (7.35-7.45)
--- NOTE | 2021-07-21 16:39 | HMH.DN ---
- Delivery Note Delivery Date:: 07/21/21 Delivery Time:: 14:44 Anesthesia Type: Epidural Was labor medically induced?: Yes Induction method: per misoprostol protocol Gestational age (weeks): 39 delivered prior to 39 weeks?: No Justification for early elective delivery:: Benign Hypertension Gender: Female at 1 minute: 7 at 5 minutes: 8 LAC or MLE?: LAC Delivery Procedure:: She is a 21-year-old 1 now para 0 at 39+ weeks gestational age. She was seen in my office and her blood pressure was in the 150/100 range. She is morbidly obese. As result of that we elected to induce her labor at term. On the evening of July 20, 2021 she had Cervidil placed. She subsequently was started on IV oxytocin the following morning and had her membranes ruptured. Under labor epidural she progressed to full dilation and delivered spontaneously a liveborn female child at 2:44 PM in the afternoon of July 21, 2021. On deliver the head the anterior shoulder easily delivered followed by the rest the 's body atraumatically. The oropharynx and nasopharynx were bulb suction. The baby was vigorous. We allowed the cord to continue to pulsate for approximately 1 minute. The cord was then doubly clamped and cut and the infant was then placed on the mother's abdomen for further care. The nurses assigned Apgars of 7 at 1 minute and 8 at 5 minutes. We then obtained cord blood as well as cord pH. She received IV oxytocin using gentle traction on the cord and countertraction the fundus I was able to easily deliver the placenta intact 4 minutes after delivery. It had a normal three-vessel cord. She had a small second-degree perineal laceration that was repaired with 3-0 Vicryl Rapide suture to the superficial tissues of the vagina and 2-0 Vicryl suture to the tissues of the perineum. She has O+ blood, she is rubella immune and was group B streptococcus negative. She plans to breast-feed. Recommended blood loss was approximately 300 cc. Laceration:: vaginal Placental Delivery Description: Spontaneous
[2021-07-21 16:40] VITALS: BP 138/89; PULSE 82; RESP 20; TEMP 36.7; O2SAT 100
[2021-07-21 19:52] VITALS: BP 112/78; PULSE 84; RESP 18; TEMP 36.8; O2SAT 98
[2021-07-22 00:07] VITALS: BP 107/60; PULSE 93; RESP 18; TEMP 37.1; O2SAT 99
[2021-07-22 04:00] VITALS: BP 107/55; PULSE 84; RESP 16; TEMP 36.4; O2SAT 99
[2021-07-22 07:42] LABS: Hematocrit 30.7 % (37.0-47.0); Hemoglobin 9.9 g/dL (12.2-16.2)
[2021-07-22 08:30] VITALS: BP 101/66; PULSE 89; RESP 20; TEMP 36.7; O2SAT 100
--- NOTE | 2021-07-22 10:32 | P.PN_ITS ---
Internal Medicine - PN: Subj *Date: 07/22/21 *Time: 10:32 Interval history: She is 1 day from a vaginal delivery. She is doing very well. She is bottlefeeding. Her lochia is normal. Exam Vital signs and Labs for Last 24 Hours: Temp Pulse Resp BP Pulse Ox 98.1 F 89 20 101/66 L 100 07/22/21 08:30 07/22/21 08:30 07/22/21 08:30 07/22/21 08:30 07/22/21 08:30 Laboratory Results - last 24 hr 07/21/21 14:57: Cord ABG pH 7.35 07/22/21 07:07: Hgb 9.9 L, Hct 30.7 L I & O for Last 24 hours: Intake & Output 07/19/21 07/20/21 07/21/21 07/22/21 11:59 11:59 11:59 11:59 Output Total 800 / 800 Balance -800 / -800 Weight 390 lb - Constitutional no acute distress Assessment and Plan (1) induced hypertension, antepartum Status: Acute Category: Medical Code(s): O13.9 - Gestational [- induced] hypertension without significant proteinuria, unspecified trimester (2) Morbid obesity with BMI of 50.0-59.9, adult Status: Acute Category: Medical Code(s): E66.01 - Morbid (severe) obesity due to excess calories; Z68.43 - Body mass index [BMI] 50.0-59.9, adult - Assessment and plan all Dx Assessment and Plan for all problems:: She is doing well. We will plan to send her home tomorrow.
[2021-07-22 16:00] VITALS: BP 134/76; PULSE 96; RESP 20; TEMP 36.8; O2SAT 100
[2021-07-22 20:08] VITALS: BP 121/77; PULSE 82; RESP 18; TEMP 36.7; O2SAT 99
[2021-07-23 00:16] VITALS: BP 107/58; PULSE 80; RESP 16; TEMP 36.6; O2SAT 98
[2021-07-23 05:29] VITALS: BP 105/60; PULSE 76; RESP 18; TEMP 36.7; O2SAT 99
--- NOTE | 2021-07-23 12:58 | HMH.DCSUM ---
General - General Admission date:: 07/20/21 Discharge date: 07/23/21 HPI HPI: PPD #2 lochia appropriate tolerating regular diet ambulating and voiding ready for discharge Hospital Course Hospital Course: per HPI Rhogam Administration: Not Indicated Objective Vital signs: Temp Pulse Resp BP Pulse Ox 98.0 F 76 18 105/60 L 99 07/23/21 05:07/23/21 05:07/23/21 05:07/23/21 05:07/23/21 05:29 Narrative: CONSTITUTIONAL: no acute distress HEENT: mucous membranes moist PULMONARY: breathing unlabored without audible wheezes CV: no tachycardia or visible JVD; normal LE peripheral pulses ABD: soft, NT/ND, no guarding : fundus firm below umbilicus SKIN: no visible rash or lesions EXT: 1+ edema LEs NEURO: alert/oriented, no altered mental status PSYCH: appropriate mood and demeanor DS: Diagnosis - Discharge Diagnosis (1) induced hypertension, antepartum Status: Acute (2) Morbid obesity with BMI of 50.0-59.9, adult Status: Acute Discharge Plan - Patient Discharge Instructions ACTIVITY: Continue current activity Additional Instructions: NO HEAVY LIFTING, NO STRENUOUS ACTIVITY, NOTHING IN THE VAGINA FOR 6 WEEKS. Patient Instructions: Depression, Hemorrhage, DI for Labor and Delivery, Vaginal , DI for Pre-eclampsia, [facility] Post Discharge Instructions, Preventing the Spread of Coronavirus Discharge Instructions - Follow up Plan Follow up with: Yair Mejía MD [Staff Physician] - Disposition: Home, Self-Care Condition at discharge:: Stable Home Medications: Home Medications Medication Instructions Recorded Confirmed Type prenat.vits,priscilla,vji-wkry-uowgv 1 tab PO DAILY 12/16/20 07/20/21 History Aspirin [Adult Low Dose Aspirin EC] 81 mg PO DAILY 06/20/21 07/20/21 History Ferrous Sulfate 325 mg PO DAILY 06/20/21 07/20/21 History Prescriptions/Medication Reconciliation: New Acetaminophen [Acetaminophen 325mg tab] 650 mg PO Q4HP PRN tablet PRN Reason: Mild Pain Ibuprofen [Motrin 400mg tablet] 800 mg PO Q6HP PRN tablet PRN Reason: Mild To Moderate Pain Continued prenat.vits,priscilla,uiq-paow-xljbk 1 tab PO DAILY Ferrous Sulfate 325 mg PO DAILY Aspirin [Adult Low Dose Aspirin EC] 81 mg PO DAILY - Problem Reconciliation Problems Reviewed?: Yes
== END 2021-07-23 15:12 | disposition home or self-care (01) | DRG 807 ==
PROVIDERS: Admitting Provider Nurse Practitioner Obstetrics & Gynecology; PCP Nurse Practitioner Family; Visit Provider Nurse Practitioner Obstetrics & Gynecology
DX: O13.3 Gestational [pregnancy-induced] hypertension without significant proteinuria, third trimester (principal); Z37.0 Single live birth; Z3A.39 39 weeks gestation of pregnancy; O70.1 Second degree perineal laceration during delivery; O14.03 Mild to moderate pre-eclampsia, third trimester; O99.330 Smoking (tobacco) complicating pregnancy, unspecified trimester; F17.210 Nicotine dependence, cigarettes, uncomplicated; O99.214 Obesity complicating childbirth; E66.01 Morbid (severe) obesity due to excess calories
CPT/HCPCS: 59409; 59025; 80305; 81001; 82800; 85007; 85014; 85018; 85025; 86850; 94761; C1758; G0283; U0003

== ENCOUNTER → 2021-12-14 17:57 | Outpatient (CLI) | payer OTHER, SELFPAY ==
[2021-12-17 07:17] LABS: Neisseria gonorrhoeae, NAA Negative (Negative)
== END ==
PROVIDERS: Nurse Practitioner Obstetrics & Gynecology; Visit Provider Nurse Practitioner Family
DX: Z72.51 High risk heterosexual behavior (principal)
CPT/HCPCS: 87491; 87591

== ENCOUNTER → 2022-12-08 10:21 | Outpatient (CLI) | payer OTHER, SELFPAY ==
[2022-12-08 12:04] LABS: HCG,Quantitative 358 mIU/ml (0-5.42)
[2022-12-09 09:29] LABS: Progesterone 5.8 ng/mL (.)
== END ==
PROVIDERS: PCP Nurse Practitioner Family; Visit Provider Nurse Practitioner Obstetrics & Gynecology
DX: Z32.01 Encounter for pregnancy test, result positive (principal)
CPT/HCPCS: 36415; 84144; 84702

== ENCOUNTER → 2023-01-07 09:51 | Outpatient (CLI) | payer OTHER, SELFPAY ==
[2023-01-07 11:41] LABS: HCG,Quantitative 6910 mIU/ml (0-5.42)
[2023-01-08 08:38] LABS: Progesterone 6.9 ng/mL (.)
== END ==
PROVIDERS: PCP Nurse Practitioner Family; Visit Provider Obstetrics & Gynecology
DX: Z34.90 Encounter for supervision of normal pregnancy, unspecified, unspecified trimester (principal); Z3A.01 Less than 8 weeks gestation of pregnancy
CPT/HCPCS: 36415; 84144; 84702

== ENCOUNTER 2023-01-09 21:42 | Emergency (ER) | payer OTHER, SELFPAY ==
[2023-01-09 21:43] VITALS: BP 147/91; PULSE 81; RESP 16; TEMP 36.7; O2SAT 100; BMI 52.7
[2023-01-09 22:19] LABS: Microscopic, Urine URINE MICROSCOPIC (MICROSCOPIC)
[2023-01-09 22:31] VITALS: BP 123/76; PULSE 63; O2SAT 100
[2023-01-09 22:31] LABS: Basophils # 0.1 K/mm3 (0-0.2); Basophils % 0.9 % (0.1-2.0); Eosinophils # 0.4 K/mm3 (0.0-0.4); Eosinophils % 2.8 % (0.1-12.0); Hematocrit 38.2 % (37.0-47.0); Hemoglobin 12.5 g/dL (12.2-16.2); Lymphocytes # 4.3 K/mm3 (0.7-4.5); Lymphocytes % 31.3 % (10-50); Mean Corpuscular HGB Conc 32.7 g/dL (31.8-35.4); Mean Corpuscular Hemoglobin 26.3 pg (27.0-31.2); Mean Corpuscular Volume 80.4 fl (81-99); Mean Platelet Volume 8.3 fl (7.4-10.4); Monocytes # 0.7 K/mm3 (0.1-1.0); Monocytes % 5.1 % (1.7-9.3); Neutrophils # 8.3 K/mm3 (1.8-7.8); Neutrophils % 59.9 % (37.0-80.0); Platelet Count 381 K/mm3 (142-424); Red Blood Count 4.75 M/mm3 (4.20-5.40); Red Cell Distribution Width 15.1 % (11.5-17.5); White Blood Count 13.8 K/mm3 (4.8-10.8)
[2023-01-09 22:32] LABS: Appearance,Urine CLEAR (Clear); Bilirubin,Urine Negative (Negative); Blood, Urine 2+ (Negative); Color,Urine YELLOW (Yellow); Glucose,Urine (UA) Negative (Negative); Ketones,Urine Negative (Negative); Leukocyte Esterase,Urine Negative (Negative); Nitrate,Urine Negative (Negative); PH,Urine 6.5 (5.0-8.5); Protein,Urine Negative (Negative); Specific Gravity, Urine 1.025 (1.005-1.030); Urobilinogen,Urine 0.2 EU/dl (0.2)
[2023-01-09 22:33] LABS: Chloride 110 mmol/L (98-107); Potassium 3.7 mmoL/L (3.5-5.1); Sodium 141 mmol/L (136-145)
[2023-01-09 22:36] LABS: Alanine Aminotransferase 13 U/L (12-78); Albumin Level 3.8 g/dl (3.5-5.0); Albumin/Globulin Ratio 1.2 (1.1-1.8); Alkaline Phosphatase 84 U/L (38-126); Anion Gap 7.7 mEq/L (5-15); Aspartate Amino Transferase 18 U/L (14-36); Bilirubin,Total 0.2 mg/dl (0.2-1.3); Blood Urea Nitrogen 18 mg/dl (7-17); Carbon Dioxide 27 mmol/L (22.0-30.0); Creatinine Clearance Estimated 114 mL/min (50-200); Estimated Glomerular Filt Rate 89 ml/min (>60); GFR (African American) 108 ML/MIN (>60); Globulin 3.3 g/dL (1.3-3.2); Total Protein,Serum 7.1 g/dl (6.3-8.2)
--- NOTE | 2023-01-09 22:36 | PC.NURSE ---
Rounded on patient, no needs at this time.
[2023-01-09 22:37] LABS: Calcium 8.5 mg/dl (8.4-10.2); Glucose 93 mg/dl (74-100)
--- NOTE | 2023-01-09 22:39 | US_ITS ---
PROCEDURE INFORMATION: Exam: US , Transvaginal Exam date and time: 01/09/2023 11:05 PM Age: 22 years old Clinical indication: Lmp or gestational age (in weeks): 9w; Antepartum complications; Bleeding; ; Additional info: Approx 9 weeks , vaginal bleeding TECHNIQUE: Imaging protocol: Real-time transvaginal obstetrical ultrasound of the maternal pelvis with image documentation. Transvaginal imaging was used for better evaluation of the fetus, adnexa, and/or cervix. COMPARISON: US OB /MATERNAL DETAIL 07/03/2021 10:34 AM FINDINGS: Gestation: There is a single intrauterine gestation measuring 7 weeks 3 days. No heart tones are evident. Gestational sac is irregular in contour. Both findings are compatible with demise. There is a 1.9 cm simple cyst in the maternal left ovary. Right ovary appears normal. No free fluid seen in the pelvis. IMPRESSION: Single intrauterine gestation measuring 7 weeks 3 days with absent heart tones and slightly irregular gestational sac both findings compatible with demise
--- NOTE | 2023-01-09 22:40 | PC.NURSE ---
ER gave verbal order for ultrasound, notified rad staff of ultrasound order
--- NOTE | 2023-01-09 22:41 | PC.NURSE ---
updated pt on POC
[2023-01-09 22:44] LABS: RBC,Urine Occasional #/hpf (0-3); Squamous Epithelial Cell,Urine Occasional #/hpf (0-5)
[2023-01-09 22:54] LABS: HCG,Quantitative 5095 mIU/ml (0-5.42)
[2023-01-09 23:01] VITALS: BP 117/80; PULSE 65; O2SAT 100
--- NOTE | 2023-01-09 23:03 | PC.NURSE ---
Pt gone to US @ this time.
--- NOTE | 2023-01-09 23:29 | PC.NURSE ---
patient back in room at this time.
--- NOTE | 2023-01-09 23:29 | PC.NURSE ---
pt returned from US. Nery speaking with Dr. Langford about findings.
[2023-01-09 23:30] VITALS: BP 139/84; PULSE 76; O2SAT 100
--- NOTE | 2023-01-09 23:31 | HMH.EDPREG ---
Discharge Plan Disposition Patient Disposition: Home, Self-Care Chief Complaint: OB/Uterine Contractions Prescriptions Prescriptions: No Action progesterone micronized [Prometrium] 200 mg capsule 200 mg PO HS Rx Instructions: off 7 days; repeat cycle Referrals Follow up/Referrals: Moisés Jon APRN [Primary Care Provider] - See instructions Yair Campbell MD [Staff Physician] - See instructions Clinical Impressions Clinical Impression: Miscarriage Instructions Patient Instructions: DI for Vaginal Bleeding During Discharge ED Provider: Anastasiya (ED)Shant HPI General Chief complaint: OB/Uterine Contractions Stated complaint: 9 weeks , mild cramping,heavy bleeding Time Seen by Provider: 01/09/23 23:31 Mode of Arrival: Ambulatory Source of Information: Patient and Medical Record Limitations: No Limitations Description of Symptoms (Recalled from ER Triage Doc. by RN): pt reports began having vaginal spotting tuesday morning, states is approx 9 weeks , sees dr. campbell, . Pt reports pt having heavier vaginal bleeding, has passed a few clots, pelvic cramping. History of Present Illness HPI Narrative: has known preg and with vag bleeding over the last few days - with cramps Complaint: vaginal bleeding Onset (ago): day(s) Consistency: intermittent Severity: moderate Vaginal bleeding: clots : Yes care: followed by OB Related Data Blood Type: O (+) positive Home Medications Medication Instructions Recorded Confirmed progesterone micronized 200 mg 200 mg PO HS low progesterone, 01/09/23 01/09/23 capsule (Prometrium) Allergies Allergy/AdvReac Type Severity Reaction Status Date / Time bee venom protein (honey bee) Allergy Unknown Swelling Verified 12/27/22 14:37 peanut Allergy Unknown Hives Verified 12/27/22 14:37 almond Allergy Verified 12/27/22 14:37 [facility] Disclaimer: The information contained in this section may have been updated after the patient was seen, as this information can be updated by other users. Medical History (Updated 01/09/23 @ 23:40 by Shant Langford (ED)MD) Sinus tachycardia Surgical History (Updated 12/27/22 @ 14:40 by JAREK Cardenas) History of tonsillectomy Family History (Updated 12/27/22 @ 14:40 by JAREK Cardenas) Other Cancer Diabetes Heart attack Social History Smoking Status: Current every day smoker tobacco type: cigarettes packs per day: 1 alcohol intake: former substance use type: denies use current occupational status: employed Travel in the last 8 weeks: None ROS Obtained: Yes All systems reviewed & no additional complaints except as documented Physical Exam General General appearance: alert Head Head exam: normocephalic Eye Eye exam: Present PERRL and EOMI ENT ENT exam: Present mucous membranes moist Neck Neck exam: Present trachea midline Respiratory Respiratory exam: Absent respiratory distress Cardiovascular Cardiovascular exam: Present regular rate Abdominal Exam Abdominal exam: Present soft Extremities Exam Extremities exam: Present full ROM Neurological Exam Neurological exam: Present alert, oriented X3 and CN II-XII intact Psychiatric Psychiatric exam: Present normal affect Skin Skin exam: Absent rash Medical Decision Making Medical Records Medical records reviewed: Yes I reviewed the patient's medical records. Byron Inquiry Pt receiving controlled substance: No Vital Signs: 01/09/23 21:43 01/09/23 22:31 Temperature 98.1 F Temperature Source Oral Pulse Rate 63 Pulse Rate [Right Radial] 81 Respiratory Rate 16 Blood Pressure 123/76 Blood Pressure [Right Arm] 147/91 H Blood Pressure Mean [Right Arm] 109 Blood Pressure Source [Right Arm] Automatic Cuff Blood Pressure Position [Right Arm] Sitting 02 Sat by Pulse Oximetry 100 100 Oxygen Delivery Method Room Air Lab Data Lab
--- NOTE | 2023-01-09 23:34 | PC.NURSE ---
DEE MOORE at
--- NOTE | 2023-01-09 23:41 | PC.NURSE ---
went in with Dr. Langford and discussed US findings. Pt verbalized understanding of findings and that she would follow-up with . Pt and SO had no other needs at this time.
[2023-01-09 23:55] VITALS: BP 144/85; PULSE 71; RESP 18; TEMP 36.7; O2SAT 100
[2023-01-09 23:55] LABS: Urine Pregnancy, HCG Qual. Positive (Negative)
== END 2023-01-09 23:55 | disposition home or self-care (01) ==
PROVIDERS: Emergency Provider Emergency Medicine; PCP Nurse Practitioner Family
DX: O02.1 Missed abortion (principal); F17.210 Nicotine dependence, cigarettes, uncomplicated; Z86.79 Personal history of other diseases of the circulatory system; Z90.49 Acquired absence of other specified parts of digestive tract; Z80.9 Family history of malignant neoplasm, unspecified; Z83.3 Family history of diabetes mellitus; Z82.49 Family history of ischemic heart disease and other diseases of the circulatory system
CPT/HCPCS: 76817; 80053; 81001; 81025; 84702; 85025; 99285

== ENCOUNTER → 2023-03-28 10:11 | Outpatient (CLI) | payer OTHER, SELFPAY ==
[2023-03-28 12:00] LABS: HCG,Quantitative 3083 mIU/ml (0-5.42)
[2023-03-29 12:07] LABS: Progesterone 6.5 ng/mL (.)
== END ==
PROVIDERS: PCP Nurse Practitioner Family; Visit Provider Nurse Practitioner Obstetrics & Gynecology
DX: N92.6 Irregular menstruation, unspecified (principal); Z32.00 Encounter for pregnancy test, result unknown
CPT/HCPCS: 36415; 84144; 84702

== ENCOUNTER → 2023-04-08 14:15 | Outpatient (CLI) | payer OTHER, SELFPAY | PROVIDERS: PCP Nurse Practitioner Family; Visit Provider Nurse Practitioner Obstetrics & Gynecology | DX: O20.9 Hemorrhage in early pregnancy, unspecified (principal) | CPT/HCPCS: 36415; 84702 ==

== ENCOUNTER → 2023-04-08 14:36 | Outpatient (CLI) | payer OTHER, SELFPAY ==
--- NOTE | 2023-04-08 14:37 | US_ITS ---
FINAL REPORT CLINICAL HISTORY: for bleeding in early and dates COMPARISON: None FINDINGS: Sonographic images of the pelvis were obtained. Gestational sac is present in the uterus. A pole is present with a crown-rump length measuring 7.9 mm which corresponds to a 6 weeks 6 day gestation. Heartbeat is identified measuring 120 beats per minute. There is fluid adjacent to the gestational sac which may represent subchorionic hemorrhage. Recommend follow-up ultrasound. There is a small amount of free fluid. IMPRESSION: Single living intrauterine gestation with 6 weeks 6 days gestational age. Reviewed, Interpreted and Dictated by Amol Weber III, MD Transcribed by Tracey Jones Authenticated and [facility]
== END ==
PROVIDERS: PCP Nurse Practitioner Family; Visit Provider Nurse Practitioner Obstetrics & Gynecology
DX: O20.9 Hemorrhage in early pregnancy, unspecified (principal); Z3A.01 Less than 8 weeks gestation of pregnancy
CPT/HCPCS: 76801

== ENCOUNTER 2023-04-09 23:04 | Emergency (ER) | payer OTHER, SELFPAY ==
[2023-04-09 23:13] VITALS: BP 167/91; PULSE 99; RESP 16; TEMP 36.7; O2SAT 100; BMI 51.7
[2023-04-09 23:31] VITALS: BP 138/76; PULSE 80; RESP 18; O2SAT 100
[2023-04-10 00:01] VITALS: BP 131/78; PULSE 84; RESP 16; O2SAT 100
--- NOTE | 2023-04-10 00:17 | HMH.EDGENADL ---
Discharge Plan Disposition Patient Disposition: Home, Self-Care Chief Complaint: PAIN Prescriptions Prescriptions: No Action progesterone micronized [Prometrium] 200 mg capsule 200 mg PO HS 30 Days Qty: 30 3RF Referrals Follow up/Referrals: Moisés Jon APRN [Primary Care Provider] - See instructions Clinical Impressions Clinical Impression: External hemorrhoid, thrombosed, Instructions Patient Instructions: DI for Hemorrhoids Discharge ED Provider: Anastasyia (ED)Shant General Adult HPI General Chief complaint: PAIN Stated complaint: Rectal pain Time Seen by Provider: 04/10/23 00:17 Mode of Arrival: Ambulatory Source of Information: Patient, Significant Other and Medical Record Limitations: No Limitations Description of Symptoms (Recalled from ER Triage Doc. by RN): pt c/o hemorrhoids ongoing x5 days. pt states the pain is severe. pt denies any bleeding states she has not had a BM in 5 days. c/o N/V. pt is 7wks LMP 4/1 History of Present Illness HPI narrative: pt is early preg and proressive hemmorroid with pain - no bleeding a 8oclock Onset (ago): day(s) Location: buttocks Severity: moderate Associated symptoms: denies other symptoms Related Data Previous Rx's Medication Instructions Recorded progesterone micronized 200 mg 200 mg PO HS 30 days #30 caps 03/29/23 capsule (Prometrium) Allergies Allergy/AdvReac Type Severity Reaction Status Date / Time bee venom protein (honey bee) Allergy Unknown Swelling Verified 04/09/23 23:18 peanut Allergy Unknown Hives Verified 04/09/23 23:18 almond Allergy Verified 04/09/23 23:18 [facility] Disclaimer: The information contained in this section may have been updated after the patient was seen, as this information can be updated by other users. Medical History Sinus tachycardia Surgical History History of tonsillectomy Family History Other Cancer Diabetes Heart attack Social History Smoking Status: Never smoker alcohol intake: former substance use type: denies use current occupational status: employed Travel in the last 8 weeks: None ROS Obtained: Yes All systems reviewed & no additional complaints except as documented Physical Exam General General appearance: alert Head Head exam: normocephalic Eye Eye exam: Present PERRL and EOMI ENT ENT exam: Present mucous membranes moist Neck Neck exam: Present trachea midline Respiratory Respiratory exam: Absent respiratory distress Cardiovascular Cardiovascular exam: Present regular rate Rectal Exam Rectal exam: Present hemorrhoids comment: what appears large thrombosed hemmorroid Extremities Exam Extremities exam: Present full ROM Neurological Exam Neurological exam: Present alert and CN II-XII intact Skin Skin exam: Absent rash Medical Decision Making Medical Records Medical records reviewed: Yes I reviewed the patient's medical records. Byron Inquiry Pt receiving controlled substance: No Vital Signs: 04/09/23 23:13 04/09/23 23:31 04/10/23 00:01 Temperature 98.1 F Temperature Source Oral Pulse Rate 80 84 Pulse Rate [Left] 99 H Respiratory Rate 16 18 16 Blood Pressure 138/76 131/78 Blood Pressure [Left Arm] 167/91 H Blood Pressure Mean 91 96 Blood Pressure Mean [Left Arm] 116 Blood Pressure Source [Left Arm] Automatic Cuff Blood Pressure Position [Left Arm] Sitting 02 Sat by Pulse Oximetry 100 100 100 Oxygen Delivery Method Room Air Lab Data Lab results reviewed: Yes I reviewed the patient's lab results. Medical Decision Narrative: will open thrombosed hemorrhoid and sitz bath and call ob/and surg Procedures Miscellaneous Procedure Procedure Performed: opened large thrombosed hemmorroi
[2023-04-10 01:10] VITALS: BP 134/86; PULSE 81; RESP 17; TEMP 37.1; O2SAT 98
== END 2023-04-10 01:12 | disposition home or self-care (01) ==
PROVIDERS: Emergency Provider Emergency Medicine; PCP Nurse Practitioner Family
DX: O22.41 Hemorrhoids in pregnancy, first trimester (principal); Z3A.01 Less than 8 weeks gestation of pregnancy
CPT/HCPCS: 46083; 99283

== ENCOUNTER → 2023-04-20 23:32 | Outpatient (CLI) | payer OTHER, SELFPAY ==
[2023-04-23 11:14] LABS: Neisseria gonorrhoeae, NAA Negative (Negative)
== END ==
PROVIDERS: PCP Nurse Practitioner Family; Visit Provider Nurse Practitioner Obstetrics & Gynecology
DX: Z34.90 Encounter for supervision of normal pregnancy, unspecified, unspecified trimester (principal)
CPT/HCPCS: 87086; 87491; 87591

== ENCOUNTER → 2023-04-25 15:16 | Outpatient (CLI) | payer OTHER, SELFPAY ==
--- NOTE | 2023-04-25 15:16 | US_ITS ---
PROCEDURE: US OB <= 14 WEEKS FETUS CLINICAL INDICATION: for dates Prior history of bleeding in early . COMPARISON: US US OB <= 14 WEEKS FETUS from 04/08/2023 FINDINGS: LMP: 02/19/2023 Established due date: 11/26/2023 An intrauterine gestational sac is present with a pole with a crown-rump length of 2.34cm correlating to gestational age of 9weeks 1day. heart tones are present with an FHR of 176bpm. Yolk sac is noted and measures 4.8 millimeters. The uterus is retroverted and retroflexed. There is still a small amount of subchorionic hemorrhage present. Both left and right ovaries are seen and appear normal. They have a polycystic appearance. Left ovary has a small corpus luteum. There is no fluid in the cul-de-sac. IMPRESSION: 1. Uterus is retroverted and retroflexed. 2. Viable fetus with an estimated due date by Ultrasound is 11/27/2023. This corresponds with her last menstrual period and due date of 11/26/2023 3. A small subchorionic blood collection is still present. 4. Both ovaries have a polycystic appearance. Dictated by: Yair Mejía MD 04/25/2023 17:50 Yair Mejía MD in OV 04/25/2023 17:50
== END ==
PROVIDERS: PCP Nurse Practitioner Family; Visit Provider Nurse Practitioner Obstetrics & Gynecology
DX: Z34.90 Encounter for supervision of normal pregnancy, unspecified, unspecified trimester (principal); Z3A.01 Less than 8 weeks gestation of pregnancy
CPT/HCPCS: 76801

== ENCOUNTER → 2023-05-18 15:18 | Outpatient (CLI) | payer OTHER, SELFPAY ==
[2023-05-18 15:56] LABS: Basophils % 0.2 % (0.1-2.0); Eosinophils # 0.2 K/mm3 (0.0-0.4); Eosinophils % 1.3 % (0.1-12.0); Hematocrit 38.6 % (37.0-47.0); Hemoglobin 12.5 g/dL (12.2-16.2); Lymphocytes # 2.8 K/mm3 (0.7-4.5); Lymphocytes % 22.4 % (10-50); Mean Corpuscular HGB Conc 32.5 g/dL (31.8-35.4); Mean Corpuscular Hemoglobin 26.8 pg (27.0-31.2); Mean Corpuscular Volume 82.4 fl (81-99); Mean Platelet Volume 8.7 fl (7.4-10.4); Monocytes # 0.6 K/mm3 (0.1-1.0); Monocytes % 4.6 % (1.7-9.3); Neutrophils # 8.8 K/mm3 (1.8-7.8); Neutrophils % 71.5 % (37.0-80.0); Platelet Count 275 K/mm3 (142-424); Red Blood Count 4.68 M/mm3 (4.20-5.40); Red Cell Distribution Width 15.6 % (11.5-17.5); White Blood Count 12.3 K/mm3 (4.8-10.8)
[2023-05-20 08:19] LABS: HIV Screen 4th Generation wRfx Non Reactive (Non Reactive); HSV 1 IgG, Type Spec 1.79 index (0.00-0.90); HSV 2 IgG, Type Spec <0.91 index (0.00-0.90); Rubella Antibodies, IgG 9.08 index (Immune >0.99)
[2023-05-20 11:57] LABS: Rapid Plasma Reagin Ab Titer Non Reactive (NonRea<1:1)
[2023-07-04 09:24] LABS: Hepatitis B Surface Antigen Negative
== END ==
PROVIDERS: PCP Nurse Practitioner Family; Visit Provider Nurse Practitioner Obstetrics & Gynecology
DX: Z34.91 Encounter for supervision of normal pregnancy, unspecified, first trimester (principal); Z3A.12 12 weeks gestation of pregnancy
CPT/HCPCS: 36415; 85025; 86593; 86695; 86703; 86762; 86790; 86850; 87340; 87380; G0432

== ENCOUNTER → 2023-07-20 14:18 | Outpatient (CLI) | payer OTHER, SELFPAY ==
--- NOTE | 2023-07-20 14:18 | US_ITS ---
PROCEDURE: US OB /MATERNAL DETAIL CLINICAL INDICATION: 20 week anatomy scan COMPARISON: US US OB <= 14 WEEKS FETUS from 04/25/2023 FINDINGS: Transabdominal sonographic images of the uterus were obtained. From her established due date she is 21 weeks 3 days. Single viable intrauterine gestation. Cephalic position. Placenta: Posteriorplacenta grade 1. There is average amount fluid. The cervix appears satisfactory. Closed and measuring 3.4 cm in length. Complete survey performed and was unremarkable on the submitted images as in PACS. No discrete anomalies identified on survey imaging by technologist. Somewhat difficult exam secondary to maternal obesity. Active fetus. Three-vessel cord with satisfactory umbilical cord insertion. 4- chamber heart noted. Outflow tracts not well visualized. Aortic arch appears normal. Survey of brain & ventricles Unremarkable. Cerebellum, cisterna magna, thalamus and choroid plexus appear normal. Face and neck survey unremarkable. Profile and nasion visualized. Nose and lips appear normal. Diaphragm and chest views unremarkable. Abdomen: Both kidneys noted and unremarkable. Stomach and bladder noted and satisfactory. Spine: Survey of the spine satisfactory with no anomalies identified nor imaged. Upper, thoracic and lower spine appears normal. Both arms and legs noted. Amniotic Fluid: Adequate. Measurements: Average ultrasound age 21weeks 2days. Gestational Age 21weeks 2days Estimated due date by ultrasound age 0111/28/2023. Estimated weight 424g BPD = 20weeks 6days OFD = 21weeks 5days HC = 20weeks 6days AC = 21weeks 5days FL = 21weeks 4days Growth Percentile= 45 Heart Rate = 150bpm Cerebellum = 21weeks Humerus = 22weeks 1day HC/AC is 1.11 CI is 0.74 FL/BPD is 0.74 FL/AC is 0.22 IMPRESSION: 1. Viable fetus in the cephalic presentation with a posterior placenta grade 1. The fluid is within normal limits. 2. Anatomical scan appears normal and measurements correlate with gestational age. 3. Difficult scan secondary to maternal obesity. Dictated by: Yair Mejía MD 07/20/2023 18:11 Yair Mejía MD in OV 07/20/2023 18:11
== END ==
PROVIDERS: PCP Nurse Practitioner Family; Visit Provider Nurse Practitioner Obstetrics & Gynecology
DX: Z34.92 Encounter for supervision of normal pregnancy, unspecified, second trimester (principal); Z3A.20 20 weeks gestation of pregnancy
CPT/HCPCS: 76811

== ENCOUNTER 2023-07-20 20:52 | Emergency (ER) | payer OTHER, SELFPAY ==
[2023-07-20 20:53] VITALS: BP 154/73; PULSE 120; RESP 16; TEMP 38.1; O2SAT 96; BMI 51.7
[2023-07-20 21:06] LABS: Influenza A, PCR Not Detected (NotDetected); Influenza B, PCR Not Detected (NotDetected)
--- NOTE | 2023-07-20 21:42 | PC.NURSE ---
pt resting comfortably in the hallway bed awaiting test result of covid swab, pt updated and offered a warm blanket
--- NOTE | 2023-07-20 22:36 | PC.NURSE ---
pt still awaiting covid swab result, specimen was recieved at 2053, pt still resting and updated
[2023-07-20 22:45] LABS: Coronavirus 19, PCR Detected (NotDetected)
--- NOTE | 2023-07-20 23:24 | HMH.EDGENADL ---
Discharge Plan Disposition Patient Disposition: Home, Self-Care Condition: Good Prescriptions Prescriptions: New ondansetron 4 mg tablet,disintegrating 4 mg PO Q8H PRN (Reason: nausea and vomiting) 4 Days Qty: 12 0RF No Action Classic 28 mg iron- 800 mcg tablet 1 tab PO aspirin [Adult Low Dose Aspirin] 81 mg tablet,delayed release (DR/EC) 81 mg PO DAILY Referrals Follow up/Referrals: Moisés Jon APRN [Primary Care Provider] - See instructions Activity Restrictions/Add. Instructions Additional Instructions/Restrictions: You were evaluated in the emergency department today. 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 Take Tylenol at home as needed for pain and fever. Follow-up with your primary care provider over the next 3 days for reassessment to ensure that you are still doing well. Orally hydrate at home is much as possible. Return to the emergency department for any new or worsening symptoms. Clinical Impressions Clinical Impression: COVID-19 affecting in second trimester Instructions Patient Instructions: DI for COVID-19 (Suspected or Confirmed ) Discharge ED Provider: Annabel Gordon General Adult HPI General Chief complaint: Fever Stated complaint: 21 weeks preg, dizzy, fever Time Seen by Provider: 07/20/23 23:02 Mode of Arrival: Ambulatory Source of Information: Patient Limitations: No Limitations Description of Symptoms (Recalled from ER Triage Doc. by RN): pt c/o fever, body aches,FIELDS that started today. pt states daughter was diagnosed with flu last week History of Present Illness HPI narrative: This patient is a 23-year-old female who is currently approximately 21 weeks presenting to the emergency department for evaluation with concern for fever, bodyaches, and headache that started today. Patient reports that her daughter was diagnosed with the flu last week. She also notes that she has had nausea, vomiting, and difficulty tolerating oral intake. She has taken Tylenol at home with minimal improvement. She denies any abdominal pain, abnormal vaginal discharge, leaking fluid, dysuria, hematuria, or other concerns. Her has been uncomplicated thus far and she has had reassuring ultrasound with her OB according to medical record review. Related Data Home Medications Medication Instructions Recorded Confirmed vits no.126-ferrous fum 1 tab PO 06/15/23 06/15/23 28 mg iron-folic acid 800 mcg tablet (Classic ) aspirin 81 mg tablet,delayed 81 mg PO DAILY 07/13/23 07/13/23 release (Adult Low Dose Aspirin) Previous Rx's Medication Instructions Recorded ondansetron 4 mg disintegrating 4 mg PO Q8H PRN nausea and 07/20/23 tablet vomiting 4 days #12 tabs Allergies Allergy/AdvReac Type Severity Reaction Status Date / Time bee venom protein (honey bee) Allergy Unknown Swelling Verified 07/13/23 14:20 peanut Allergy Unknown Hives Verified 07/13/23 14:20 almond Allergy Verified 07/13/23 14:20 [facility] Disclaimer: The information contained in this section may have been updated after the patient was seen, as this information can be updated by other users. Medical History Sinus tachycardia Surgical History History of tonsillectomy Family History Other Cancer Diabetes Heart attack Social History Smoking Status: Current every day smoker tobacco type: cigarettes packs per day: 1 alcohol intake: former substance use type: denies use current occupational status: employed Travel in the last 8 weeks: None ROS Obtained: Yes All systems reviewed & no additional complaints except as documented Physical Exam General Genera
[2023-07-20 23:25] VITALS: BP 130/85; PULSE 90; RESP 20; TEMP 37.6; O2SAT 97
== END 2023-07-20 23:27 | disposition home or self-care (01) ==
PROVIDERS: Emergency Medicine; Emergency Provider Emergency Medicine; PCP Nurse Practitioner Family
DX: O98.512 Other viral diseases complicating pregnancy, second trimester (principal); O99.332 Smoking (tobacco) complicating pregnancy, second trimester; U07.1 COVID-19; F17.210 Nicotine dependence, cigarettes, uncomplicated; Z3A.21 21 weeks gestation of pregnancy
CPT/HCPCS: 87636; 99283

== ENCOUNTER → 2023-08-23 08:32 | Outpatient (CLI) | payer OTHER, SELFPAY ==
[2023-08-23 08:46] LABS: Basophils % 0.2 % (0.1-2.0); Eosinophils # 0.2 K/mm3 (0.0-0.4); Eosinophils % 1.4 % (0.1-12.0); Hemoglobin 11.7 g/dL (12.2-16.2); Lymphocytes # 2.7 K/mm3 (0.7-4.5); Lymphocytes % 17.2 % (10-50); Mean Corpuscular HGB Conc 32.5 g/dL (31.8-35.4); Mean Corpuscular Hemoglobin 27.6 pg (27.0-31.2); Mean Corpuscular Volume 84.9 fl (81-99); Mean Platelet Volume 8.8 fl (7.4-10.4); Monocytes # 0.8 K/mm3 (0.1-1.0); Monocytes % 4.8 % (1.7-9.3); Neutrophils # 11.9 K/mm3 (1.8-7.8); Neutrophils % 76.3 % (37.0-80.0); Platelet Count 296 K/mm3 (142-424); Red Blood Count 4.24 M/mm3 (4.20-5.40); Red Cell Distribution Width 14.5 % (11.5-17.5); White Blood Count 15.6 K/mm3 (4.8-10.8)
[2023-08-23 08:47] LABS: MANUAL DIFFERENTIAL MANUAL DIFFERENTIAL (MANUAL DIFF)
[2023-08-23 09:04] LABS: Glucose,Fasting 90 mg/dl (74-100)
[2023-08-23 09:23] LABS: Eosinophils % 1 % (0-3); Lymphocytes % 22 % (10-50); Monocytes % 2 % (2-9); Neutrophils % 75 % (42-76); Total Cells Counted 100
[2023-08-23 09:27] LABS: Platelet Estimate Normal; RBC Morphology Normal
[2023-08-23 11:09] LABS: Glucose 1 Hour 81 mg/dL (74-100)
== END ==
PROVIDERS: PCP Nurse Practitioner Family; Visit Provider Nurse Practitioner Obstetrics & Gynecology
DX: Z34.92 Encounter for supervision of normal pregnancy, unspecified, second trimester (principal); Z3A.25 25 weeks gestation of pregnancy
CPT/HCPCS: 36415; 82951; 85007; 85025

== ENCOUNTER 2023-09-10 12:02 | Outpatient (CLI) | payer OTHER, SELFPAY ==
[2023-09-10 12:10] VITALS: BP 148/86; PULSE 90; RESP 20; TEMP 36.6; O2SAT 100; BMI 53.1
[2023-09-10 12:17] VITALS: BMI 53.1
[2023-09-10 13:09] LABS: Microscopic, Urine URINE MICROSCOPIC (MICROSCOPIC)
[2023-09-10 13:13] LABS: Appearance,Urine SL CLOUDY (Clear); Bilirubin,Urine Negative (Negative); Blood, Urine Negative (Negative); Color,Urine YELLOW (Yellow); Glucose,Urine (UA) Negative (Negative); Ketones,Urine Negative (Negative); Leukocyte Esterase,Urine Negative (Negative); Nitrate,Urine Negative (Negative); PH,Urine 6.5 (5.0-8.5); Protein,Urine TRACE (Negative); Specific Gravity, Urine 1.025 (1.005-1.030); Urobilinogen,Urine 0.2 EU/dl (0.2)
[2023-09-10 13:24] LABS: Bacteria,Urine 2+ /lpf; Mucus,Urine Trace /lpf; WBC,Urine Occasional #/hpf (0-3)
[2023-09-10 13:25] LABS: Barbiturates Screen,Urine Negative ng/ml (<200)
[2023-09-10 13:26] LABS: Benzodiazepines Screen,Urine Negative ng/ml (<200)
[2023-09-10 13:27] LABS: Amphetamine/Metha Screen,Urine Negative ng/ml (<1000); Cannabinoid Screen,Urine Negative ng/ml (<50)
[2023-09-10 13:28] LABS: Cocaine Screen,Urine Negative ng/ml (<300); Methadone Screen,Urine Negative ng/ml (<300)
[2023-09-10 13:29] LABS: Opiate Screen,Urine Negative ng/ml (<300)
[2023-09-10 13:30] LABS: Phencyclidine Screen,Urine Negative ng/ml (<25)
== END 2023-09-10 13:45 | disposition home or self-care (01) ==
LOC: OBOUT 12:04 → OB 12:05
PROVIDERS: PCP Nurse Practitioner Family; Visit Provider Obstetrics & Gynecology
DX: O26.893 Other specified pregnancy related conditions, third trimester (principal); Z3A.29 29 weeks gestation of pregnancy; W19.XXXA Unspecified fall, initial encounter
CPT/HCPCS: 80305; 81001; 87086; G0463

== ENCOUNTER 2023-09-16 16:23 | Outpatient (CLI) | payer OTHER, SELFPAY ==
[2023-09-16] VITALS (7 sets, daily range): BP systolic 131–155; BP diastolic 78–85; PULSE 84–88; RESP 16; TEMP 37.1; O2SAT 96; BMI 52.5
[2023-09-16 17:31] LABS: Microscopic, Urine URINE MICROSCOPIC (MICROSCOPIC)
[2023-09-16 17:33] LABS: Appearance,Urine CLEAR (Clear); Bilirubin,Urine Negative (Negative); Blood, Urine Negative (Negative); Color,Urine YELLOW (Yellow); Glucose,Urine (UA) Negative (Negative); Ketones,Urine TRACE (Negative); Leukocyte Esterase,Urine Negative (Negative); Nitrate,Urine Negative (Negative); Protein,Urine TRACE (Negative); Specific Gravity, Urine 1.025 (1.005-1.030); Urobilinogen,Urine 0.2 EU/dl (0.2)
[2023-09-16 17:46] LABS: Barbiturates Screen,Urine Negative ng/ml (<200); Benzodiazepines Screen,Urine Negative ng/ml (<200)
[2023-09-16 17:47] LABS: Amphetamine/Metha Screen,Urine Negative ng/ml (<1000)
[2023-09-16 17:48] LABS: Cannabinoid Screen,Urine Negative ng/ml (<50); Methadone Screen,Urine Negative ng/ml (<300)
[2023-09-16 17:49] LABS: Cocaine Screen,Urine Negative ng/ml (<300)
[2023-09-16 17:50] LABS: Opiate Screen,Urine Negative ng/ml (<300); Phencyclidine Screen,Urine Negative ng/ml (<25)
--- NOTE | 2023-09-16 18:20 | US_ITS ---
PROCEDURE INFORMATION: Exam: US Biophysical Profile Without Non-Stress Test Exam date and time: 09/16/2023 6:49 PM Age: 23 years old Clinical indication: status abnormalities: ; movements, decreased; Single gestation; Third trimester (=28 weeks 0 days); ; Additional info: Fell on abdomen x 6 days ago=-- dec movement-- maternal obesity TECHNIQUE: Imaging protocol: US biophysical profile without non-stress testing. COMPARISON: US OB /MATERNAL DETAIL 07/20/2023 2:30 PM FINDINGS: Single viable intrauterine gestation in breech presentation with heart rate of 160 bpm. Placenta is anterior/lateral and grade 2. Cervical length measures 3.11 cm. BIOPHYSICAL PROFILE: breathing movement (BPP): 2 out of 2. body movement (BPP): 2 out of 2. tone (BPP): 2 out of 2. Amniotic fluid (BPP): 2 out of 2. Amniotic fluid index measures 12.68 cm. IMPRESSION: Biophysical profile score is 8 out of 8. Breech presentation noted.
[2023-09-16 18:22] LABS: Bacteria,Urine Trace /lpf; WBC,Urine Occasional #/hpf (0-3)
[2023-09-16 19:00] LABS: Basophils % 0.2 % (0.1-2.0); Eosinophils # 0.2 K/mm3 (0.0-0.4); Eosinophils % 1.3 % (0.1-12.0); Hematocrit 34.2 % (37.0-47.0); Hemoglobin 11.8 g/dL (12.2-16.2); Lymphocytes # 3.1 K/mm3 (0.7-4.5); Lymphocytes % 16.5 % (10-50); Mean Corpuscular HGB Conc 34.5 g/dL (31.8-35.4); Mean Corpuscular Hemoglobin 29.3 pg (27.0-31.2); Mean Corpuscular Volume 84.8 fl (81-99); Mean Platelet Volume 8.6 fl (7.4-10.4); Monocytes # 0.9 K/mm3 (0.1-1.0); Neutrophils # 14.3 K/mm3 (1.8-7.8); Platelet Count 315 K/mm3 (142-424); Red Blood Count 4.03 M/mm3 (4.20-5.40); Red Cell Distribution Width 14.2 % (11.5-17.5); White Blood Count 18.6 K/mm3 (4.8-10.8)
[2023-09-16 19:08] LABS: Activated Partial Thrombo Time 25.9 seconds (22.8-30.6); Fibrinogen 488 mg/dL (229.9-363.5); INR 0.89 (0.9-1.1); Prothrombin Time 9.7 seconds (10.1-12.5)
[2023-09-16 19:10] LABS: MANUAL DIFFERENTIAL MANUAL DIFFERENTIAL (MANUAL DIFF)
[2023-09-16 19:19] LABS: Alanine Aminotransferase 14 U/L (12-78); Aspartate Amino Transferase 20 U/L (14-36); Blood Urea Nitrogen 10 mg/dl (7-17); Calcium 9.1 mg/dl (8.4-10.2); Chloride 105 mmol/L (98-107); Creatinine Clearance Estimated 181 mL/min (50-200); Estimated Glomerular Filt Rate 152 ml/min (>60); GFR (African American) 183 ML/MIN (>60); Glucose 93 mg/dl (74-100); Potassium 3.9 mmoL/L (3.5-5.1); Sodium 136 mmol/L (136-145); Uric Acid 4.1 mg/dl (2.5-6.2)
[2023-09-16 19:23] LABS: Lymphocytes % 18 % (10-50); Monocytes % 1 % (2-9); Neutrophils % 81 % (42-76); Platelet Estimate Normal; RBC Morphology Normal; Total Cells Counted 100
[2023-09-16 19:24] LABS: D-Dimer 1.12 ug/mL (0.0-0.5)
[2023-09-16 19:31] LABS: Anion Gap 8.9 mEq/L (5-15); Carbon Dioxide 26 mmol/L (22.0-30.0)
== END 2023-09-16 20:15 | disposition home or self-care (01) ==
LOC: UTC.OUT 16:24 → OB 16:25
PROVIDERS: PCP Nurse Practitioner Family; Visit Provider Obstetrics & Gynecology
DX: O36.8130 Decreased fetal movements, third trimester, not applicable or unspecified (principal); Z3A.29 29 weeks gestation of pregnancy
CPT/HCPCS: 36415; 76819; 80048; 80305; 81001; 84450; 84460; 84550; 85007; 85025; 85378; 85384; 85610; 85730; G0463

== ENCOUNTER 2023-10-24 09:39 | Outpatient (CLI) | payer OTHER, SELFPAY ==
[2023-10-24 09:59] VITALS: BP 149/85; PULSE 90; RESP 18; TEMP 36.7; O2SAT 97; BMI 54.1
== END 2023-10-24 10:30 | disposition home or self-care (01) ==
LOC: OBOUT 09:41 → OB 09:42
PROVIDERS: PCP Nurse Practitioner Family; Visit Provider Obstetrics & Gynecology
DX: O26.893 Other specified pregnancy related conditions, third trimester (principal); Z3A.35 35 weeks gestation of pregnancy
CPT/HCPCS: 59025; G0463

== ENCOUNTER → 2023-10-27 16:22 | Outpatient (CLI) | payer OTHER, SELFPAY | PROVIDERS: PCP Nurse Practitioner Family; Visit Provider Obstetrics & Gynecology | DX: O10.913 Unspecified pre-existing hypertension complicating pregnancy, third trimester (principal); Z3A.35 35 weeks gestation of pregnancy | CPT/HCPCS: 86403 ==

== ENCOUNTER 2023-10-31 09:49 | Outpatient (CLI) | payer OTHER, SELFPAY ==
[2023-10-31 10:10] VITALS: BMI 54.0
[2023-10-31 10:11] VITALS: BP 143/67; PULSE 114; RESP 17; TEMP 36.6; O2SAT 99
[2023-10-31 11:12] LABS: Basophils % 0.3 % (0.1-2.0); Eosinophils # 0.1 K/mm3 (0.0-0.4); Eosinophils % 0.8 % (0.1-12.0); Hematocrit 36.9 % (37.0-47.0); Hemoglobin 12.3 g/dL (12.2-16.2); Lymphocytes # 2.8 K/mm3 (0.7-4.5); Lymphocytes % 17.7 % (10-50); Mean Corpuscular HGB Conc 33.3 g/dL (31.8-35.4); Mean Corpuscular Hemoglobin 27.8 pg (27.0-31.2); Mean Corpuscular Volume 83.6 fl (81-99); Mean Platelet Volume 8.2 fl (7.4-10.4); Monocytes # 0.8 K/mm3 (0.1-1.0); Neutrophils # 11.9 K/mm3 (1.8-7.8); Neutrophils % 76.2 % (37.0-80.0); Platelet Count 335 K/mm3 (142-424); Red Blood Count 4.41 M/mm3 (4.20-5.40); Red Cell Distribution Width 14.6 % (11.5-17.5); White Blood Count 15.6 K/mm3 (4.8-10.8)
[2023-10-31 11:14] LABS: MANUAL DIFFERENTIAL MANUAL DIFFERENTIAL (MANUAL DIFF)
[2023-10-31 11:44] LABS: Eosinophils % 1 % (0-3); Lymphocytes % 26 % (10-50); Monocytes % 3 % (2-9); Neutrophils % 70 % (42-76); Platelet Estimate Normal; RBC Morphology Normal; Total Cells Counted 100
[2023-10-31 12:04] LABS: Chloride 105 mmol/L (98-107)
[2023-10-31 12:05] LABS: Potassium 4.5 mmoL/L (3.5-5.1); Sodium 134 mmol/L (136-145)
[2023-10-31 12:07] LABS: Alanine Aminotransferase 13 U/L (12-78); Aspartate Amino Transferase 18 U/L (14-36); Blood Urea Nitrogen 10 mg/dl (7-17); Creatinine Clearance Estimated 151 mL/min (50-200); Estimated Glomerular Filt Rate 123 ml/min (>60); GFR (African American) 149 ML/MIN (>60)
[2023-10-31 12:08] LABS: Albumin Level 3.2 g/dl (3.5-5.0); Alkaline Phosphatase 194 U/L (38-126); Anion Gap 8.5 mEq/L (5-15); Bilirubin,Total 0.3 mg/dl (0.2-1.3); Calcium 8.5 mg/dl (8.4-10.2); Carbon Dioxide 25 mmol/L (22.0-30.0); Globulin 3.1 g/dL (1.3-3.2); Glucose 87 mg/dl (74-100); Total Protein,Serum 6.3 g/dl (6.3-8.2)
[2023-10-31 15:25] LABS: Collection Time,Urine 24 hours; Total Volume,Urine 850 mL (600-1600)
[2023-10-31 16:20] LABS: Patient Weight,Urine 366 lbs
[2023-10-31 16:34] LABS: Total Protein 24 Hour,Urine 60 mg/24 hr (40-90)
[2023-10-31 16:35] LABS: Creatinine 24 Hour,Urine 1105 mg/24hr (630-2500)
[2023-10-31 16:43] LABS: Creatinine Clearance Urine 26.6 mL/min (25-115); Creatinine,Urine Random 130 mg/dL (Not Estab.)
== END 2023-10-31 10:33 | disposition home or self-care (01) ==
LOC: LAB.DROPOF 09:51 → OB 09:52
PROVIDERS: PCP Nurse Practitioner Family; Visit Provider Obstetrics & Gynecology
DX: O10.913 Unspecified pre-existing hypertension complicating pregnancy, third trimester (principal); Z3A.36 36 weeks gestation of pregnancy
CPT/HCPCS: 36415; 59025; 80053; 82575; 84155; 85007; 85025; G0463

== ENCOUNTER → 2023-11-03 12:48 | Outpatient (CLI) | payer OTHER, SELFPAY ==
--- NOTE | 2023-11-03 12:48 | US_ITS ---
PROCEDURE: US OB BIOPHYSICAL PROFILE CLINICAL INDICATION: Chronic hypertension COMPARISON: 09/16/2023. FINDINGS: Transabdominal sonographic images of the uterus were obtained. From her established due date she is 36weeks 5days. The following parameters are obtained: Viable fetus in the cephalic presentation with posterolateral placenta grade 2. Average ultrasound age is 35weeks 1day. Estimated due date by ultrasound is 12/07/2023. Estimated weight is 5lb 10oz, 2572 grams. Cervix measures 3.1 cm. heart rate: 132bpm bpm. BPD: 34 weeks 4 days HC: 35 weeks 3 days AC: 34 weeks 5 days FL: 35 weeks 6 days HC/AC: 1.03 FL/BPD: 0.82 FL/AC: 0.23 15 percentile Amniotic fluid index: 10.77cm, MVP 5.1 cm. Qualitative AFV: 2 breathing movements: 2 Gross body movements: 2 Tone: 2 Biophysical profile score: 8 No obvious anomalies evident.Kidneys, profile, bladder, four-chamber view, three-vessel cord appear normal. IMPRESSION: 1. Viable fetus in the cephalic presentation with a posterolateral placenta grade 2. 2. The fluid is within normal limits with an amniotic fluid index of 10.77 cm, MVP 5.1 cm. 3. Biophysical profile 8/8 with good breathing movement seen. 4. Has been good interval growth with the fetus currently measuring 15th percentile. 5. The AC is approximately 2 weeks behind. Dictated by: Yair Mejía MD 11/04/2023 09:36 Yair Mejía MD in OV 11/04/2023 09:36
== END ==
LOC: RAD 12:48
PROVIDERS: PCP Nurse Practitioner Family; Visit Provider Obstetrics & Gynecology
DX: O10.913 Unspecified pre-existing hypertension complicating pregnancy, third trimester (principal); O28.8 Other abnormal findings on antenatal screening of mother; O99.213 Obesity complicating pregnancy, third trimester
CPT/HCPCS: 76816; 76819

== ENCOUNTER 2023-11-07 09:53 | Outpatient (CLI) | payer OTHER, SELFPAY ==
[2023-11-07 10:20] VITALS: BMI 56.9
[2023-11-07 10:21] VITALS: BMI 56.9
[2023-11-07 10:26] VITALS: BP 120/70; PULSE 92; RESP 20; TEMP 36.7; O2SAT 100
== END 2023-11-07 11:06 | disposition home or self-care (01) ==
LOC: OBOUT 09:54 → OB 09:55
PROVIDERS: PCP Nurse Practitioner Family; Visit Provider Obstetrics & Gynecology
DX: O26.893 Other specified pregnancy related conditions, third trimester (principal); Z3A.37 37 weeks gestation of pregnancy
CPT/HCPCS: 59025

== ENCOUNTER 2023-11-13 23:47 | Outpatient (CLI) | payer OTHER, SELFPAY ==
[2023-11-13 23:52] VITALS: BMI 55.3
[2023-11-14 00:23] LABS: Microscopic, Urine URINE MICROSCOPIC (MICROSCOPIC)
[2023-11-14 00:26] LABS: Appearance,Urine CLEAR (Clear); Bilirubin,Urine Negative (Negative); Blood, Urine 2+ (Negative); Color,Urine YELLOW (Yellow); Glucose,Urine (UA) Negative (Negative); Ketones,Urine Negative (Negative); Leukocyte Esterase,Urine TRACE (Negative); Nitrate,Urine Negative (Negative); Protein,Urine TRACE (Negative); Specific Gravity, Urine >= 1.030 (1.005-1.030); Urobilinogen,Urine 0.2 EU/dl (0.2)
[2023-11-14 00:30] VITALS: BP 113/63; PULSE 101; RESP 20; TEMP 37.3; O2SAT 96
[2023-11-14 00:35] VITALS: BP 113/63; PULSE 101; RESP 20; TEMP 37.3; O2SAT 96; BMI 55.3
[2023-11-14 00:40] LABS: Bacteria,Urine 2+ /lpf; RBC,Urine Occasional #/hpf (0-3)
[2023-11-14 00:42] LABS: Amphetamine/Metha Screen,Urine Negative ng/ml (<1000); Benzodiazepines Screen,Urine Negative ng/ml (<200); Cocaine Screen,Urine Negative ng/ml (<300); Methadone Screen,Urine Negative ng/ml (<300); Opiate Screen,Urine Negative ng/ml (<300); Phencyclidine Screen,Urine Negative ng/ml (<25)
[2023-11-14 00:46] LABS: Barbiturates Screen,Urine Negative ng/ml (<200)
[2023-11-14 00:49] LABS: Cannabinoid Screen,Urine Negative ng/ml (<50)
== END 2023-11-14 01:33 | disposition home or self-care (01) ==
LOC: OBOUT 23:49 → OB 23:50
PROVIDERS: PCP Nurse Practitioner Family; Referring Provider Obstetrics & Gynecology; Visit Provider Obstetrics & Gynecology
DX: O60.03 Preterm labor without delivery, third trimester (principal); Z3A.38 38 weeks gestation of pregnancy
CPT/HCPCS: 59025; 80307; 81001; 87086; G0463

== ENCOUNTER 2023-11-14 06:09 | Inpatient (IN) | payer OTHER, SELFPAY ==
[2023-11-14 06:03] VITALS: BMI 65.2
[2023-11-14 06:38] VITALS: BP 176/83; PULSE 96; RESP 21; TEMP 36.8; O2SAT 100; BMI 55.3
[2023-11-14 06:55] LABS: Basophils # 0.1 K/mm3 (0-0.2); Basophils % 0.2 % (0.1-2.0); Eosinophils # 0.1 K/mm3 (0.0-0.4); Eosinophils % 0.4 % (0.1-12.0); Hematocrit 35.5 % (37.0-47.0); Hemoglobin 11.8 g/dL (12.2-16.2); Lymphocytes # 1.4 K/mm3 (0.7-4.5); Lymphocytes % 4.6 % (10-50); Mean Corpuscular HGB Conc 33.1 g/dL (31.8-35.4); Mean Corpuscular Hemoglobin 27.9 pg (27.0-31.2); Mean Corpuscular Volume 84.3 fl (81-99); Mean Platelet Volume 8.3 fl (7.4-10.4); Monocytes # 0.9 K/mm3 (0.1-1.0); Monocytes % 2.9 % (1.7-9.3); Neutrophils # 28.4 K/mm3 (1.8-7.8); Neutrophils % 91.9 % (37.0-80.0); Platelet Count 330 K/mm3 (142-424); Red Blood Count 4.21 M/mm3 (4.20-5.40); Red Cell Distribution Width 14.7 % (11.5-17.5)
[2023-11-14 06:56] LABS: MANUAL DIFFERENTIAL MANUAL DIFFERENTIAL (MANUAL DIFF)
--- NOTE | 2023-11-14 06:58 | EXP.OB.APHP ---
OB - H&P: HPI Antepartum History of Present Illness Chief complaint: Painful uterine contractions History of present illness: Ms Yoanna Leon is 23 yo at 38w2d who presents to [facility] Labor and Delivery with complaint of increasing painful contractions and blood tinged mucus. Contractions started around 2100 on 11/13/23. Upon arrival to L&D on 11/13/23 cervical exam was 3/50/-3, posterior. She was observed and cervix rechecked after an hour- no cervical change. She was discharged with labor precautions. She returned to L&D at 0600 this morning, 11/14/23. Cervical exam was 8/80/-1. Baby is active. She has had good care. GBS negative. complicated by CHTN and maternal obesity. She has been taking Procardia ER 30 mg and baby Aspirin, 81 mg. OB ultrasound 11/03/23 demonstrated EFW 15 %ile, BPP 8/8, JUAN MANUEL 10.77. History of Present Criteria for establishing EDC:: LMP confirmed by 1st trimester US care: good care Ultrasounds: normal mid trimester US Medical complications: cardiovascular (Chronic Hypertension) Labs Blood type: O (+) positive Rubella: immune RPR/VDRL: nonreactive GBS status: negative HBsAG: negative PFSH [facility] Disclaimer: The information contained in this section may have been updated after the patient was seen, as this information can be updated by other users. Medical History (Updated 11/14/23 @ 07:27 by Deidre Cantu DO) Active labor Chronic hypertension affecting with 38 completed weeks gestation Sinus tachycardia Surgical History History of tonsillectomy Family History Other Cancer Diabetes Heart attack Social History Smoking Status: Current every day smoker tobacco type: cigarettes packs per day: 1 alcohol intake: former substance use type: denies use current occupational status: unemployed Travel in the last 8 weeks: None Review of Systems Review of Systems Review of systems:: pertinent systems reviewed and negative unless documented below *Genitourinary Comments: + regular, painful contractions Meds Home Medications and Allergies Home Medications Medication Instructions Recorded Confirmed Type vits no.126-ferrous fum 1 tab PO 06/15/23 11/10/23 History 28 mg iron-folic acid 800 mcg tablet (Classic ) aspirin 81 mg tablet,delayed 81 mg PO DAILY 07/13/23 11/10/23 History release (Adult Low Dose Aspirin) nifedipine 30 mg tablet,extended 30 mg PO DAILY #30 tabs 09/28/23 11/10/23 Rx release New Prescriptions to Start Prescriptions: Allergies Allergy/AdvReac Type Severity Reaction Status Date / Time bee venom protein (honey bee) Allergy Unknown Swelling Verified 11/10/23 13:03 peanut Allergy Unknown Hives Verified 11/10/23 13:03 almond Allergy Verified 11/10/23 13:03 OB - H&P: Exam Physical Exam Vital signs: Temp Pulse Resp BP Pulse Ox O2 Del Method 98.2 F 96 H 21 176/83 H 100 Room Air 11/14/23 06:38 11/14/23 06:38 11/14/23 06:38 11/14/23 06:38 11/14/23 06:38 11/14/23 06:38 Constitutional no acute distress, morbidly obese and cooperative Routine HEENT Exam Head: Present normocephalic and atraumatic Eye: Absent conjunctivae pink ENT: Present mucous membranes moist Routine Neck Exam Present full ROM Routine Respiratory Exam Present CTA bilaterally and normal respiratory effort Routine Cardiovascular Exam Present RRR Routine Abdominal Exam Present soft (Gravid) and obese; Absent tenderness Routine Rectal Exam Patient deferred: visual exam Routine Exam External: Present normal urethra appearance; Absent erythema, tenderness, lesions, lacerations or vulvar erythema Routine Extremities Exam Present full ROM; Absent edema or calf tenderness Routine Neurological Exam Present alert, orie
[2023-11-14 07:45] LABS: Lymphocytes % 7 % (10-50); Monocytes % 4 % (2-9); Neutrophils % 89 % (42-76); Platelet Estimate Normal; RBC Morphology Normal; Total Cells Counted 100
--- NOTE | 2023-11-14 08:52 | HMH.PHAINT1 ---
Pharmacy Intervention Comments: MEDICATION RECONCILIATION COMPLETE USING LIST FROM MOST RECENT OB OFFICE VISIT AND EXTERNAL PHARMACY FILL HISTORY.
--- NOTE | 2023-11-14 09:02 | EXP.ANES.CKL ---
[facility] Disclaimer: The information contained in this section may have been updated after the patient was seen, as this information can be updated by other users. Medical History (Updated 11/14/23 @ 07:27 by Deidre Cantu DO) Active labor Chronic hypertension affecting with 38 completed weeks gestation Sinus tachycardia Surgical History History of tonsillectomy Family History Other Cancer Diabetes Heart attack Social History Smoking Status: Current every day smoker tobacco type: cigarettes packs per day: 1 alcohol intake: former substance use type: denies use current occupational status: unemployed Travel in the last 8 weeks: None [facility] Anesthesia Checklist Patient Identification Patient Identification: Verbal (Name & ) Structural Data Admitted From: Inpatient Planned Operative Procedure/s: labor epidural Consent for Planned Operative Procedure(s) Verified: Yes Additional verifications Anesthesia Reactions: No Airway Assessment Mallampati Score:: Class II C-Spine Mobility Assessed: Yes TMJ Mobility Assessed: Yes Dentition: Good Dentition Neurological Assessment Level of Consciousness: Awake, Alert and Appropriate Anesthesia Plan Anesthesia Risk discussed: Yes Anesthesia Plan: Verified ASA Class: III Anesthesia Type: Epidural
--- NOTE | 2023-11-14 10:37 | EXP.DN ---
Delivery Note Delivery Date:: 11/14/23 Delivery Time:: 10:13 Anesthesia Type: Epidural Was labor medically induced?: No Induction method: none Gestational age (weeks): 38 Infant delivered prior to 39 weeks?: Yes Justification for early elective delivery:: Active Labor Gender: Female at 1 minute: 8 at 5 minutes: 9 Delivery Procedure:: Mom complete with epidural. Pushed for approximately 40 minutes. Head delivered spontaneously over intact perineum in BOONE position. Nuchal cord x 1 delivered through. Anterior shoulder delivered with gentle downward pressure. Posterior shoulder and remainder of body delivered spontaneously. Baby placed on maternal abdomen, mouth and nares bulb suctioned, warmed/dried and stimulated. Delayed cord clamping was performed for 60 seconds. Cord was clamped and cut by father of baby. Cord blood was obtained. Placenta delivered spontaneously and intact. Placenta will be sent to pathology for review. Small periurethral laceration repaired with 3-0 Vicryl. Hemostasis noted. Bilateral labial abrasions were hemostatic. Mom and baby were skin to skin and doing well after delivery. Live female baby (baby's name is Delisa Naqvi) APGARs 8 (1 min), 9 (5 min) EBL 100 mL Placental Delivery Description: Spontaneous
[2023-11-14 20:26] VITALS: BP 132/65; PULSE 85; RESP 18; TEMP 36.9; O2SAT 99
[2023-11-15 00:08] VITALS: BP 141/67; PULSE 82; RESP 18; TEMP 36.9
[2023-11-15 04:36] VITALS: BP 132/59; PULSE 80; RESP 18; TEMP 36.7; O2SAT 97
[2023-11-15 05:28] LABS: Basophils # 0.1 K/mm3 (0-0.2); Basophils % 0.3 % (0.1-2.0); Eosinophils # 0.3 K/mm3 (0.0-0.4); Eosinophils % 1.4 % (0.1-12.0); Hematocrit 32.3 % (37.0-47.0); Hemoglobin 10.9 g/dL (12.2-16.2); Lymphocytes # 3.9 K/mm3 (0.7-4.5); Lymphocytes % 17.2 % (10-50); Mean Corpuscular HGB Conc 33.7 g/dL (31.8-35.4); Mean Corpuscular Hemoglobin 27.7 pg (27.0-31.2); Mean Corpuscular Volume 82.1 fl (81-99); Mean Platelet Volume 8.6 fl (7.4-10.4); Monocytes # 0.8 K/mm3 (0.1-1.0); Monocytes % 3.7 % (1.7-9.3); Neutrophils # 17.6 K/mm3 (1.8-7.8); Neutrophils % 77.4 % (37.0-80.0); Platelet Count 306 K/mm3 (142-424); Red Blood Count 3.93 M/mm3 (4.20-5.40); White Blood Count 22.8 K/mm3 (4.8-10.8)
[2023-11-15 05:32] LABS: MANUAL DIFFERENTIAL MANUAL DIFFERENTIAL (MANUAL DIFF)
[2023-11-15 05:52] LABS: Eosinophils % 2 % (0-3); Lymphocytes % 19 % (10-50); Monocytes % 5 % (2-9); Neutrophils % 74 % (42-76); Total Cells Counted 100
[2023-11-15 05:53] LABS: Microcytosis 1+; Platelet Estimate Normal
--- NOTE | 2023-11-15 11:33 | EXP.PN ---
Subjective *Date: 11/15/23 *Time: 11:33 Interval history: Ms Yoanna Leon is 23 yo day #1 following a normal spontaneous vaginal delivery at at 38w2d gestation. complicated by CHTN and maternal obesity. She has been taking Procardia ER 30 mg and baby Aspirin, 81 mg. Routine delivery and course. Patient reports that she is having some back pain and abdominal cramping. Patient reports that the ibuprofen and Tylenol is slightly relieving it. Patient reports that she is tolerating p.o. without nausea or vomiting. She is voiding without dysuria. She endorses flatus and has had a bowel movement. States her lochia is scant. She is ambulating without difficulty. Denies chest pain shortness of breath or pain in her legs. No further complaints at this time. Exam Data for Last 24 hours Vital signs and Labs for Last 24 Hours: Temp Pulse Resp BP Pulse Ox O2 Del Method 98.0 F 80 18 132/59 L 97 Room Air 11/15/23 04:36 11/15/23 04:36 11/15/23 04:36 11/15/23 04:36 11/15/23 04:36 11/15/23 04:36 Laboratory Results - last 24 hr 11/15/23 05:00: WBC 22.8 H* D, RBC 3.93 L, Hgb 10.9 L, Hct 32.3 L, MCV 82.1, MCH 27.7, MCHC 33.7, RDW 15.0, Plt Count 306, MPV 8.6, Neut % (Auto) 77.4, Lymph % (Auto) 17.2, [place] % (Auto) 3.7, Eos % (Auto) 1.4, Baso % (Auto) 0.3, Neut # (Auto) 17.6 H, Lymph # (Auto) 3.9, [place] # (Auto) 0.8, Eos # (Auto) 0.3, Baso # (Auto) 0.1, Total Counted 100, Neutrophils % (Manual) 74, Lymphocytes % (Manual) 19, Monocytes % (Manual) 5, Eosinophils % (Manual) 2, Platelet Estimate Normal, Microcytosis 1+ I & O for Last 24 hours: Intake & Output 11/12/23 11/13/23 11/14/23 11/15/23 23:59 23:59 23:59 23:59 Weight 375 lb Narrative: General: patient is alert oriented in no acute distress and responds appropriately to questions. Appears to be in minimal pain. Sitting up in the chair and doing well HEENT: NCAT, EOMI, moist mucous membranes, neck supple with full ROM Cardiovascular: RRR +S1/S2, no murmurs or rubs Pulmonary: Clear to auscultation bilaterally, nonlabored breathing, symmetric chest rise Abdominal: Fundus non palpable. tenderness appropriate for the period. Extremities: trace edema, no tenderness or cyanosis noted Skin: Normal turgor, intact, warm. Negative for erythema, pallor, petechia, or lesions Neurologic: Negative for sensory or motor deficit Psychiatric: Normal affect, normal thought process, good judgment and insight, no depression or anxious mood appreciated. Assessment and Plan *Assessment and plan (1) (normal spontaneous vaginal delivery): Status: Acute Category: Medical Code(s): O80 - Encounter for full-term uncomplicated delivery (2) with 38 completed weeks gestation: Status: Acute Category: Medical Code(s): Z3A.38 - 38 weeks gestation of (3) Chronic hypertension affecting : Status: Acute Category: Medical Code(s): O10.919 - Unspecified pre-existing hypertension complicating , unspecified trimester (4) Obesity affecting in third trimester, antepartum: Status: Acute Qualifiers: Obesity type affecting : severe obesity due to excess calories Qualified Code(s): O99.213 - Obesity complicating , third trimester; E66.01 - Morbid (severe) obesity due to excess calories Category: Medical Code(s): O99.213 - Obesity complicating , third trimester Plan Stable. PPD#1 s/p -Doing well. VSS. Serial lochia and fundal checks. -Continue with perineal ice packs for discomfort -Hemoglobin: 11.8--> 10.9 -O+/antibody negative -Bottle feeding, female -Contraception: considering Depo. Would like to discuss at visit. She was aware of side effect profile and it was reiterated today -Follow-up 2 weeks for routine visit -Dispo: home tomorrow pending mother/in
[2023-11-15 20:00] VITALS: BP 129/74; PULSE 87; RESP 18; TEMP 36.7; O2SAT 99
[2023-11-16 04:45] VITALS: BP 139/77; PULSE 74; RESP 18; TEMP 36.8; O2SAT 97
[2023-11-16 06:54] LABS: Basophils % 0.2 % (0.1-2.0); Eosinophils # 0.2 K/mm3 (0.0-0.4); Eosinophils % 1.2 % (0.1-12.0); Hematocrit 30.4 % (37.0-47.0); Hemoglobin 10.1 g/dL (12.2-16.2); Lymphocytes # 3.6 K/mm3 (0.7-4.5); Lymphocytes % 21.6 % (10-50); Mean Corpuscular HGB Conc 33.3 g/dL (31.8-35.4); Mean Corpuscular Hemoglobin 27.9 pg (27.0-31.2); Mean Corpuscular Volume 83.9 fl (81-99); Mean Platelet Volume 8.7 fl (7.4-10.4); Monocytes # 0.8 K/mm3 (0.1-1.0); Monocytes % 4.7 % (1.7-9.3); Neutrophils # 11.9 K/mm3 (1.8-7.8); Neutrophils % 72.3 % (37.0-80.0); Platelet Count 261 K/mm3 (142-424); Red Blood Count 3.63 M/mm3 (4.20-5.40); White Blood Count 16.5 K/mm3 (4.8-10.8)
[2023-11-16 06:56] LABS: MANUAL DIFFERENTIAL MANUAL DIFFERENTIAL (MANUAL DIFF)
[2023-11-16 08:00] VITALS: BP 133/77; PULSE 99; RESP 20; TEMP 36.8; O2SAT 100
[2023-11-16 08:59] LABS: Eosinophils % 2 % (0-3); Lymphocytes % 22 % (10-50); Monocytes % 6 % (2-9); Neutrophils % 70 % (42-76); Platelet Estimate Normal; RBC Morphology Normal; Total Cells Counted 100
--- NOTE | 2023-11-16 10:55 | EXP.DC.SUM ---
General Admission date:: 11/14/23 Discharge date: 11/16/23 HPI HPI HPI: Ms Yoanna Leon is 23 yo at 38w2d who presents to [facility] Labor and Delivery with complaint of increasing painful contractions and blood tinged mucus. Contractions started around 2100 on 11/13/23. Upon arrival to L&D on 11/13/23 cervical exam was 3/50/-3, posterior. She was observed and cervix rechecked after an hour- no cervical change. She was discharged with labor precautions. She returned to L&D at 0600 this morning, 11/14/23. Cervical exam was 8/80/-1. Baby is active. She has had good care. GBS negative. Hospital Course Hospital Course Hospital Course: She progressed to full dilation and delivered spontaneously a liveborn female child on November 14, 2023. Baby had Apgars of 8 at 1 minute and 9 at 5 minutes. She has done well and has remained afebrile throughout her hospitalization. She is eating and drinking and ambulating. She would like Depo-Provera prior to discharge. She is discharged home to follow-up with Dr. Mitchell in approximately 2 weeks time. She will continue with her vitamins and iron. She was given these instructions with respect to limiting her activity, driving and sexual activity. Her condition on discharge is stable and improved. Exam Data for Last 24 hours Vital signs and Labs for Last 24 Hours: Temp Pulse Resp BP Pulse Ox O2 Del Method 98.2 F 99 H 20 133/77 100 Room Air 11/16/23 08:00 11/16/23 08:00 11/16/23 08:00 11/16/23 08:00 11/16/23 08:00 11/16/23 08:00 Laboratory Results - last 24 hr 11/16/23 06:40: WBC 16.5 H D, RBC 3.63 L, Hgb 10.1 L, Hct 30.4 L, MCV 83.9, MCH 27.9, MCHC 33.3, RDW 15.0, Plt Count 261, MPV 8.7, Neut % (Auto) 72.3, Lymph % (Auto) 21.6, [place] % (Auto) 4.7, Eos % (Auto) 1.2, Baso % (Auto) 0.2, Neut # (Auto) 11.9 H, Lymph # (Auto) 3.6, [place] # (Auto) 0.8, Eos # (Auto) 0.2, Baso # (Auto) 0.0, Total Counted 100, Neutrophils % (Manual) 70, Lymphocytes % (Manual) 22, Monocytes % (Manual) 6, Eosinophils % (Manual) 2, Platelet Estimate Normal, RBC Morphology Normal I & O for Last 24 hours: Intake & Output 11/13/23 11/14/23 11/15/23 11/16/23 11:59 11:59 11:59 11:59 Weight 375 lb Constitutional Constitutional: no acute distress and morbidly obese *Routine HEENT Exam Head: Present normocephalic *Routine Neck Exam Neck: Present supple and full ROM *Routine Respiratory Exam Respiratory: Present normal respiratory effort Results Data Completed and Pending Labs on day of discharge: Labs from last 24 hours 11/16/23 06:40 WBC 16.5 H D RBC 3.63 L Hgb 10.1 L Hct 30.4 L MCV 83.9 MCH 27.9 MCHC 33.3 RDW 15.0 Plt Count 261 MPV 8.7 Neut % (Auto) 72.3 Lymph % (Auto) 21.6 [place] % (Auto) 4.7 Eos % (Auto) 1.2 Baso % (Auto) 0.2 Neut # (Auto) 11.9 H Lymph # (Auto) 3.6 [place] # (Auto) 0.8 Eos # (Auto) 0.2 Baso # (Auto) 0.0 Total Counted 100 Neutrophils % (Manual) 70 Lymphocytes % (Manual) 22 Monocytes % (Manual) 6 Eosinophils % (Manual) 2 Platelet Estimate Normal RBC Morphology Normal DS: Diagnosis Discharge Diagnosis (1) (normal spontaneous vaginal delivery): Status: Acute Code(s): O80 - Encounter for full-term uncomplicated delivery (2) with 38 completed weeks gestation: Status: Acute Code(s): Z3A.38 - 38 weeks gestation of (3) Chronic hypertension affecting : Status: Acute Code(s): O10.919 - Unspecified pre-existing hypertension complicating , unspecified trimester (4) Obesity affecting in third trimester, antepartum: Status: Acute Code(s): O99.213 - Obesity complicating , third trimester Qualifiers: Obesity type affecting : severe obesity due to excess calories Qualified Code(s): O99.213 - Obesity complicating , third trimester; E66.01 - Morbid (severe) obesity due
== END 2023-11-16 11:30 | disposition home or self-care (01) | DRG 807 ==
LOC: OBOUT 06:11 → OB 06:11
PROVIDERS: Admitting Provider Obstetrics & Gynecology; PCP Nurse Practitioner Family; Referring Provider Obstetrics & Gynecology; Visit Provider Obstetrics & Gynecology
DX: O16.4 Unspecified maternal hypertension, complicating childbirth (principal); Z37.0 Single live birth; Z3A.38 38 weeks gestation of pregnancy; O10.92 Unspecified pre-existing hypertension complicating childbirth; O99.334 Smoking (tobacco) complicating childbirth; F17.210 Nicotine dependence, cigarettes, uncomplicated; O99.214 Obesity complicating childbirth; O71.82 Other specified trauma to perineum and vulva; O69.81X0 Labor and delivery complicated by cord around neck, without compression, not applicable or unspecified
CPT/HCPCS: 59409; 36415; 59025; 85007; 85025; 86850; 88307; 94761; G0283; J1050

== ENCOUNTER 2023-11-20 12:47 | Emergency (ER) | payer OTHER, SELFPAY ==
[2023-11-20 12:49] VITALS: BP 130/91; PULSE 76; RESP 18; TEMP 36.6; O2SAT 100; BMI 54.1
--- NOTE | 2023-11-20 12:53 | ED_ITS ---
Discharge Plan Disposition Patient Disposition: Home, Self-Care Condition: Good Prescriptions Prescriptions: No Action Classic 28 mg iron- 800 mcg tablet 1 tab PO DAILY aspirin [Adult Low Dose Aspirin] 81 mg tablet,delayed release (DR/EC) 81 mg PO DAILY nifedipine 30 mg tablet extended release 30 mg PO DAILY Referrals Follow up/Referrals: Moisés Jon APRN [Primary Care Provider] - See instructions Activity Restrictions/Add. Instructions Additional Instructions/Restrictions: Please follow-up with a heating and refrigeration inspector. It appears that the skin tag is not infected at this time. It may fall off on its own. Please monitor for any signs or symptoms of infection. Please return if you develop any new or worsening symptoms. Clinical Impressions Clinical Impression: Inflamed skin tag Instructions Patient Instructions: DI for Skin Abscess Discharge ED Provider: Rigo Warren General Adult HPI General Chief complaint: Skin/Abscess/Foreign Body Stated complaint: black spot of lower right abd hip area w/smell Time Seen by Provider: 11/20/23 12:50 History of Present Illness HPI narrative: The patient presents with a chief complaint of a skin growth that has been present for approximately seven years. Initially, the growth was small but has since increased in size. There have been no prior issues reported with the growth. The patient is currently one week and had initially attributed potential irritation to the pins from her garments. However, the patient now reports that the skin growth has turned completely black and is accompanied by drainage and a foul odor. Related Data Home Medications Medication Instructions Recorded Confirmed vits [id number] fum 1 tab PO DAILY Supplement 06/15/23 11/14/23 28 mg iron-folic acid 800 mcg tablet (Classic ) aspirin 81 mg tablet,delayed 81 mg PO DAILY Blood Thinner 07/13/23 11/14/23 release (Adult Low Dose Aspirin) nifedipine 30 mg tablet,extended 30 mg PO DAILY High Blood Pressure 11/14/23 11/14/23 release Allergies Allergy/AdvReac Type Severity Reaction Status Date / Time bee venom protein (honey bee) Allergy Unknown Swelling Verified 11/10/23 13:03 peanut Allergy Unknown Hives Verified 11/10/23 13:03 almond Allergy Verified 11/10/23 13:03 [facility] Disclaimer: The information contained in this section may have been updated after the patient was seen, as this information can be updated by other users. Medical History (Updated 11/20/23 @ 13:05 by Rigo Warren MD) Active labor Bug bite Chest pain Chronic hypertension affecting COVID-19 affecting in second trimester External hemorrhoid, thrombosed Hemorrhage, early , antepartum condition or complication History of miscarriage Miscarriage Nexplanon insertion with 38 completed weeks gestation Second trimester bleeding Shortness of breath Sinus tachycardia Surgical History History of tonsillectomy Family History Other Cancer Diabetes Heart attack Social History (Updated 11/14/23 @ 18:11 by Sabrina Hook RN) Smoking Status: Current every day smoker tobacco type: cigarettes packs per day: 1 alcohol intake: former substance use type: denies use current occupational status: unemployed Travel in the last 8 weeks: None ROS Obtained: Yes Systems reviewed as appropriate & no additional complaints except as documented As per HPI Physical Exam General General appearance: alert and in no apparent distress Head Head exam: atraumatic and normocephalic Eye Eye exam: Present normal appearance Neck Neck exam: Present normal inspection Chest Chest inspection: Present normal inspection and symmetric chest wall rise Respiratory Respiratory exam: Present normal lung sounds bilaterally; Absent respiratory distress Cardiovascular Cardiovascular exam: Present regular rate and normal rhythm Abdominal Exam Abdominal exam: Present soft Neurological Exam Neurological exam: Present alert and oriented X3 Psychiatric Psychiatric exam: Present normal affect and normal mood Skin Skin exam: Present warm, dry and other (In right inguinal area, skin lesion consistent with acrochordon. No surrounding erythema, edema, appears to be devitalized. ) Medical Decision Making Medical Records Medical records reviewed: Yes I reviewed the patient's medical records. Byron Inquiry Pt receiving controlled substance: No Vital Signs: 11/20/23 12:49 11/20/23 13:08 Temperature 97.9 F 97.9 F Temperature Source Oral Oral Pulse Rate 76 Pulse Rate [Radial] 76 Respiratory Rate 18 18 Blood Pressure 130/91 H Blood Pressure [Right Arm] 130/91 H Blood Pressure Mean [Right Arm] 104 Blood Pressure Source Automatic Cuff Blood Pressure Source [Right Arm] Automatic Cuff Blood Pressure Position Sitting Blood Pressure Position [Right Arm] Sitting 02 Sat by Pulse Oximetry 100 Oxygen Delivery Method Room Air Room Air Medical Decision Narrative: Patient with history and exam per above presenting for evaluation of skin lesion Diagnoses considered include melanoma, acrochordon, cellulitis, abscess, among others Patient's skin lesion appears to be most consistent with acrochordon. Unfortunately, patient will need this specimen sent to pathology lab for review to rule out melanoma or other malignant etiology, which cannot be completed in the emergency department. The tissue appears to be devitalized and will likely fall off. I see no evidence of surrounding cellulitis or abscess. Patient is systemically nontoxic. Patient was instructed to follow-up with a heating and refrigeration inspector, keep the tissue if it falls off spontaneously, monitor for any signs of infection, return with any new or worsening symptoms. Critical Care Critical Care Time Critical Care Time: No
[2023-11-20 13:08] VITALS: BP 130/91; PULSE 76; RESP 18; TEMP 36.6; O2SAT 100
== END 2023-11-20 13:09 | disposition home or self-care (01) ==
PROVIDERS: Emergency Provider Emergency Medicine; PCP Nurse Practitioner Family
DX: L91.8 Other hypertrophic disorders of the skin (principal); O99.73 Diseases of the skin and subcutaneous tissue complicating the puerperium; F17.210 Nicotine dependence, cigarettes, uncomplicated
CPT/HCPCS: 99282

== ENCOUNTER 2024-09-10 19:20 | Emergency (ER) | payer OTHER, SELFPAY ==
[2024-09-10 20:00] VITALS: BP 124/84; PULSE 91; RESP 17; TEMP 37.1; O2SAT 99; BMI 51.8
--- NOTE | 2024-09-10 20:11 | EXP.UTC ---
Discharge Plan Disposition Patient Disposition: Home, Self-Care Condition: Good Prescriptions Prescriptions: New amoxicillin 875 mg tablet 875 mg PO Q12H Qty: 20 0RF Referrals Follow up/Referrals: Moisés Jon APRN [Primary Care Provider] - See instructions Activity Restrictions/Add. Instructions Additional Instructions/Restrictions: *Monitor Temp, Over the counter Motrin or Tylenol as directed/as needed Tylenol every 4 hours and Motrin every 6 hours (as long as your family doctor has told you that you can take it) for fever or pain. and straight to ER if unable to lower temp less than 101.0 after medication given *Warm salt water gargles may help to soothe the throat *Throat Lozenges? *Warm fluids like tea with honey may help to soothe the throat? *Sleep elevated *Humidifier/Vaporizer *If you did not take Penicillin shot or was unable to, start taking antibiotic immediately and make sure that you take it for the FULL length of time although you should start to feel better in 24-48 hours *change toothbrush and toothpaste 24-48 hours after starting to take antibiotics so you do not reinfect yourself Monitor Temp. Tylenol and/or Ibuprofen as needed. ER if fever is no less than 101 despite alternating Tylenol and Ibuprofen * Encourage fluids, water, Gatorade, powerade, pedialyte if infant/toddler/or child *Cold fluids, popsicles and ice cream may feel good on his throat Follow up IMMEDIATELY for new or worsening symptoms or no Noticeable improvement over the next 48-72 hours. 911 for difficulty breathing or swallowing Clinical Impressions Clinical Impression: Strep throat Stand Alone Forms Stand Alone Forms: Work/School Release Instructions Patient Instructions: DI for Strep Throat, Strep Throat Print Language Print Language: [place] Discharge ED Provider: Naty Degroot [facility] [place] HPI General Stated complaint: sore throat, body ache, fever Mode of Arrival: Ambulatory Source of Information: Patient Limitations: No Limitations Time Seen by Provider: 09/10/24 20:11 Description of Symptoms (Recalled from Triage Doc. by RN): PATIENT C/O SORE THROAT, BODY ACHES, FEVER AND DIZZINESS THAT STARTED THIS MORNING HEENT Symptoms (Recalled from RN notes): Yes Resp Symptoms (Recalled from RN notes): No Skin Symptoms (Recalled from RN notes): No MS Symptoms (Recalled from RN notes): No Functional Status (Recalled from RN notes): WNL History of Present Illness Provider Complaint: Patient states that she started this morning with sore throat, fever, body aches and at times feels a little dizzy states this evening her throat was hurting her worse so she came in to get checked Related Data Previous Rx's ?Medication ?Instructions ?Recorded amoxicillin 875 mg tablet 875 mg PO Q12H #20 tabs 09/10/24 Allergies Allergy/AdvReac Type Severity Reaction Status Date / Time bee venom protein (honey bee) Allergy Unknown Swelling Verified 11/10/23 13:03 peanut Allergy Unknown Hives Verified 11/10/23 13:03 almond Allergy Verified 11/10/23 13:03 Worker's Comp Is this a Worker's Comp case?: No [facility] Disclaimer: The information contained in this section may have been updated after the patient was seen, as this information can be updated by other users. Medical History (Updated 09/10/24 @ 20:14 by Naty Degroot APRN) Active labor with 38 completed weeks gestation Chronic hypertension affecting COVID-19 affecting in second trimester Hemorrhage, early , antepartum condition or complication History of miscarriage External hemorrhoid, thrombosed Miscarriage Nexplanon insertion Shortness of breath Chest pain Bug bite Sinus tachycardia Second trimester bleeding Surgical History History of tonsillectomy Family History Other Cancer Diabetes Heart attack Social History (Updated 11/14/23 @ 18:11 by Sabrina Hook RN) Smoking Status: Current every day smoker tobacco type: cigarettes packs per day: 1 alcohol intake: former substance use type: denies use current occupational status: unemployed Travel in the last 8 weeks: None ROS Obtained: Yes All systems reviewed & no additional complaints except as documented and Yes Systems reviewed as appropriate & no additional complaints except as documented Constitutional Constitutional: Reports system reviewed and no additional complaints, except as documented, Reports as per HPI, Reports body ache and Reports chills ENT Ears, Nose, Mouth, and Throat: Reports system reviewed and no additional complaints, except as documented, Reports as per HPI, Reports dizziness and Reports sore throat Cardiovascular Cardiovascular: Reports system reviewed and no additional complaints, except as documented and Reports as per HPI Respiratory Respiratory: Reports system reviewed and no additional complaints, except as documented and Reports as per HPI Gastrointestinal Gastrointestingal: Reports system reviewed and no additional complaints, except as documented and as per HPI Neurologic Neurologic: Reports dizziness Physical Exam General General appearance: alert and in no apparent distress ENT ENT exam: Present mucous membranes moist Expanded ENT Exam Nose exam: Absent sinus tenderness Throat exam: Present other (Pharyngeal erythema noted with PND) Respiratory Respiratory exam: Present normal lung sounds bilaterally; Absent respiratory distress or wheezes Cardiovascular Cardiovascular exam: Present regular rate, normal rhythm and normal heart sounds Neurological Exam Neurological exam: Present alert, oriented X3 and normal gait Medical Decision Making Medical Records Screening: Per USPSTF and CDC recommendations, given the prevalence of disease in our region, it is our hospital?s policy to screen for HIV and viral Hepatitis for all patients aged 18 and over and those with ongoing risk factors. Byron Inquiry Pt receiving controlled substance: No Byron was queried for this patient: No Vital Signs: 09/10/24 20:00 Temperature 98.7 F Temperature Source Oral Pulse Rate [Left Brachial] 91 H Respiratory Rate 17 Blood Pressure [Left Arm] 124/84 Blood Pressure Mean [Left Arm] 97 Blood Pressure Source [Left Arm] Automatic Cuff Blood Pressure Position [Left Arm] Sitting 02 Sat by Pulse Oximetry 99 Oxygen Delivery Method Room Air Lab Data Lab results reviewed: Yes I reviewed the patient's lab results.
[2024-09-10 20:16] LABS: UTC Influenza A Antigen Negative (Negative); UTC Influenza B Antigen Negative (Negative); UTC Strep Screen (Rapid) Positive (Negative)
[2024-09-10 20:17] VITALS: BP 124/84; PULSE 91; RESP 17; TEMP 37.1; O2SAT 99
[2024-09-10] MEDS: AMOXICILLIN 500MG CAPSULE 500 MG PO (20:31)
== END 2024-09-10 20:32 | disposition home or self-care (01) ==
PROVIDERS: Emergency Provider Nurse Practitioner; PCP Nurse Practitioner Family
DX: J02.0 Streptococcal pharyngitis (principal)
CPT/HCPCS: 87804; 87880; 99213; G0381